=== PATIENT | male | born 1930 | race Caucasian/White ===

== ENCOUNTER 2017-02-13 09:34 | Emergency (ER) | payer MEDICARE ==
[~2017-02-13] VITALS: Ht 160 cm; Wt 75.0 kg
[~2017-02-13 09:34] MED LIST: ALPR.25 PO; ATOR80TA41 PO; BUPR-197 PO; COUM1TAB PO; COUM6TAB PO; ECASA PO; FINA1TAB2 PO; FURO20 PO; LANO0.2510 PO; MECL25 PO; NAME10TA PO; OMEP20CA5 PO; TAMS0.4C4 PO; VITA100018 PO; VITA100T55 PO
[2017-02-13 09:36] VITALS: BP 123/74; PULSE 85; RESP 16; TEMP 98.4; O2SAT 94
[2017-02-13 09:58] VITALS: BP 115/71; PULSE 90; RESP 21; TEMP 98.6; O2SAT 95
[2017-02-13 10:03] VITALS: BP 115/71; PULSE 90; RESP 21; TEMP 98.6; O2SAT 95
[2017-02-13] MEDS ORDERED: ALPR.25 PO (10:03)
[2017-02-13] MEDS ORDERED: BUPR150T3 PO (10:03)
[2017-02-13] MEDS ORDERED: VITA100018 PO (10:03)
[2017-02-13] MEDS ORDERED: ATOR10TA15 PO (10:03)
[2017-02-13] MEDS ORDERED: FURO1TAB62 PO (10:03)
[2017-02-13] MEDS ORDERED: OMEP20TA93 PO (10:03)
[2017-02-13] MEDS ORDERED: NAME10TA PO (10:03)
[2017-02-13] MEDS ORDERED: WARF-60 PO (10:03)
[2017-02-13] MEDS ORDERED: WARF-23 PO (10:03)
[2017-02-13] MEDS ORDERED: ALLO300T2 PO (10:03)
[2017-02-13] MEDS ORDERED: VITA500T4 PO (10:03)
[2017-02-13] MEDS ORDERED: DIGO0.12 PO (10:03)
[2017-02-13] MEDS ORDERED: SODIUM CHLORIDE 0.9% FLUSH 10 ML FLUSH IVF PRN ×2 (10:15)
[2017-02-13 10:25] VITALS: BP 115/71; PULSE 90; RESP 21; TEMP 98.6; O2SAT 95
--- NOTE | 2017-02-13 10:43 | PD ---
HPI Chief Complaint: General Weakness Time Seen by Provider: 09:59 Travel History International Travel<30 days: No Contact w/Intl Traveler<30days: No Traveled to known affect area: No History of Present Illness HPI 86 y/o male presents with his family with concern of increased generalized weakness that is worse in his legs and his arms leading to frequent falls. He went to [facility] urgent care a couple days ago and had an x-ray of his arm that showed a possible fracture and that is why he has the brace on. She states that he is on Coumadin given his history of strokes and they're not sure if he hit his head at all. They state that he has significant dementia and answer all the questions for him. He specifically denies any pain. History is limited. Family states that he can normally ambulate with his walker but since yesterday has not been able to move without significant assistance PFSH Past Medical History Hx Anticoagulant Therapy: Yes Arthritis: Yes Asthma: No Autoimmune Disease: No Blood Disorders: No Anxiety: No Depression: Yes Heart Rhythm Problems: Yes (ATRIAL FIBRILLATION) Cancer: No Cardiac Catheterization: Yes Cardiovascular Problems: Yes High Cholesterol: Yes Chemotherapy: No Chest Pain: Yes Congestive Heart Failure: No COPD: No Cerebrovascular Accident: Yes Diabetes: No Diminished Hearing: No Endocrine: No Gastrointestinal Disorders: Yes (HEARTBURN) GERD: Yes Glaucoma: No Gout: Yes Genitourinary: No Headaches: No Hepatitis: No Hiatal Hernia: No Hypertension: No Kidney Stones: No Musculoskeletal: Yes Neurologic: No Psychiatric: No Reproductive: No Respiratory: No Myocardial Infarction: No Radiation Therapy: No Renal Failure: No Seizures: No Sickle Cell Disease: No Sleep Apnea: No Thyroid Disease: No Ulcer: No Tetanus Vaccination: Unknown Influenza Vaccination: Yes Past Surgical History Abdominal Surgery: No AICD: No Cardiac Surgery: No Cholecystectomy: Yes Ear Surgery: No Endocrine Surgery: No Eye Surgery: No Genitourinary Surgery: No Gynecologic Surgery: No Oral Surgery: No Pacemaker: No Thoracic Surgery: No Other Surgery: Yes Social History Alcohol Use: No Tobacco Use: No Substance Use: No Allergies-Medications (Allergen,Severity, Reaction): Coded Allergies: No Known Allergies (Verified Adverse Reaction, Unknown, 02/13/17) Reported Meds & Prescriptions Reported Meds & Active Scripts Active Reported Xanax (Alprazolam) 0.25 Mg Tab 0.25 Mg PO Q6H PRN Vitamin D3 (Cholecalciferol) 1,000 Unit Tab 1,000 Units PO DAILY Warfarin 6 Mg Tab 6 Mg PO EVERY OTHER DAY Warfarin 5 Mg Tab 5 Mg PO EVERY OTHER DAY Vitamin B-12 (Cyanocobalamin) 500 Mcg Tab 500 Mcg PO DAILY Allopurinol 300 Mg Tab 300 Mg PO DAILY Atorvastatin (Atorvastatin Calcium) 10 Mg Tab 10 Mg PO HS Digoxin 0.125 Mg Tab 0.5 Tab PO DAILY Omeprazole 20 Mg Tab 20 Mg PO DAILY Bupropion HCl ER 24 HR (Bupropion HCl) 150 Mg Tab 150 Mg PO DAILY Namenda (Memantine) 10 Mg Tab 10 Mg PO DAILY Lasix (Furosemide) 20 Mg Tab 20 Mg PO DAILY Review of Systems Except as stated in HPI: all other systems reviewed are Neg Physical Exam Narrative GENERAL: Well-nourished, well-developed patient. SKIN: Warm and dry. HEAD: Normocephalic and atraumatic. EYES: No injection or drainage. pupils are equal ENT: No nasal drainage noted. NECK: Supple, trachea midline. CARDIOVASCULAR: Regular rate and rhythm RESPIRATORY: Breath sounds equal bilaterally at apices. No accessory muscle use. GASTROINTESTINAL: Abdomen soft, non-tender, nondistended. EXTREMITIES: No edema. BACK: Nontender to entire spine, to mid lumbar area there is step off, ?duration NEUROLOGICAL: Awake. Generalized weakness throughout noted, clear speech Data Data Last Documented VS Vital Signs Date Time Temp Pulse Resp B/P (MAP) Pulse Ox O2 Delivery O2 Flow Rate FiO2 02/13/17 13:38 85 143/70 (94) 96 02/13/17 13:07 19 Room Air 02/13/17 10:25 98.6 Orders Orders Complete Blood Count With Diff (02/13/17 10:09) Prothrombin Time / Inr (Pt) (02/13/17 10:09) Act Partial Throm Time (Ptt) (02/13/17 10:09) Type And Screen (02/13/17 10:09) Chest, Single Ap (02/13/17 10:09) Pelvis, Ap Only (Routine) (02/13/17 10:09) Ct Brain W/O Iv Contrast(Rout) (02/13/17 10:09) Ct Cerv Spine W/O Contrast (02/13/17 10:09) Ct Thor Spine W/O Contrast (02/13/17 10:09) Ct Lumb Spine W/O Contrast (02/13/17 10:09) Apply Cervical Collar (02/13/17 10:09) Iv Access Insert/Monitor (02/13/17 10:09) Ecg Monitoring (02/13/17 10:09) Oximetry (02/13/17 10:09) Sodium Chloride 0.9% Flush (Ns Flush) (02/13/17 10:15) Electrocardiogram (02/13/17 10:09) Comprehensive Metabolic Panel (02/13/17 10:09) Magnesium (Mg) (02/13/17 10:09) Ckmb (Isoenzyme) Profile (02/13/17 10:09) Troponin I (02/13/17 10:09) Urinalysis - C+S If Indicated (02/13/17 10:09) Sodium Chloride 0.9% Flush (Ns Flush) (02/13/17 10:15) Sodium Chlorid 0.9% 500 Ml Inj (Ns 500 M (02/13/17 11:45) Cath For Specimen (02/13/17 11:57) Ed Discharge Order (02/13/17 13:06) Labs Laboratory Tests Test 02/13/17 10:12 02/13/17 12:15 White Blood Count 13.3 TH/MM3 Red Blood Count 4.97 MIL/MM3 Hemoglobin 13.4 GM/DL Hematocrit 41.1 % Mean Corpuscular Volume 82.7 FL Mean Corpuscular Hemoglobin 26.9 PG Mean Corpuscular Hemoglobin Concent 32.5 % Red Cell Distribution Width 16.1 % Platelet Count 136 TH/MM3 Mean Platelet Volume 8.8 FL Neutrophils (%) (Auto) 66.7 % Lymphocytes (%) (Auto) 16.4 % Monocytes (%) (Auto) 15.8 % Eosinophils (%) (Auto) 0.7 % Basophils (%) (Auto) 0.4 % Neutrophils # (Auto) 8.9 TH/MM3 Lymphocytes # (Auto) 2.2 TH/MM3 Monocytes # (Auto) 2.1 TH/MM3 Eosinophils # (Auto) 0.1 TH/MM3 Basophils # (Auto) 0.1 TH/MM3 CBC Comment DIFF FINAL Differential Comment Prothrombin Time 17.5 SEC Prothromb Time International Ratio 1.6 RATIO Activated Partial Thromboplast Time 35.9 SEC Blood Urea Nitrogen 28 MG/DL Creatinine 1.48 MG/DL Random Glucose 89 MG/DL Total Protein 6.9 GM/DL Albumin 3.3 GM/DL Calcium Level 8.8 MG/DL Magnesium Level 1.6 MG/DL Alkaline Phosphatase 86 U/L Aspartate Amino Transf (AST/SGOT) 14 U/L Alanine Aminotransferase (ALT/SGPT) 17 U/L Total Bilirubin 0.5 MG/DL Sodium Level 140 MEQ/L Potassium Level 4.0 MEQ/L Chloride Level 109 MEQ/L Carbon Dioxide Level 23.7 MEQ/L Anion Gap 7 MEQ/L Estimat Glomerular Filtration Rate 45 ML/MIN Total Creatine Kinase 62 U/L Troponin I LESS THAN 0.02 NG/ML Urine Color YELLOW Urine Turbidity CLEAR Urine pH 5.5 Urine Specific Cisco 1.013 Urine Protein NEG mg/dL Urine Glucose (UA) NEG mg/dL Urine Ketones NEG mg/dL Urine Occult Blood NEG Urine Nitrite NEG Urine Bilirubin NEG Urine Urobilinogen LESS THAN 2.0 MG/DL Urine Leukocyte Esterase NEG Urine RBC 1 /hpf Urine WBC LESS THAN 1 /hpf Urine Hyaline Casts 1 /lpf Microscopic Urinalysis Comment CULT NOT INDICATED MDM Medical Decision Making Medical Screen Exam Complete: Yes Emergency Medical Condition: Yes Medical Record Reviewed: Yes (past history confirmed) Interpretation(s) CBC & BMP Diagram 02/13/17 10:12 Total Protein 6.9, Albumin 3.3 L, Calcium Level 8.8, Magnesium Level 1.6, Alkaline Phosphatase 86, Aspartate Amino Transf (AST/SGOT) 14 L, Alanine Aminotransferase (ALT/SGPT) 17, Total Bilirubin 0.5 Last 24 hours Impressions Thor[address] Spine CT 02/13/17 1009 Signed Impressions: Service Date/Time: January 10:41 - CONCLUSION: No acute findings and no evidence of fracture. Multilevel discogenic degenerative changes in the mid and lower thoracic spine and old mild compression deformity of T11. Smith Hilario MD Pelvis X-Ray 02/13/17 1009 Signed Impressions: Service Date/Time: January 10:27 - CONCLUSION: Negative exam. Smith Hilario MD Lumbar Spine CT 02/13/17 1009 Signed Impressions: Service Date/Time: January 10:44 - CONCLUSION: 1. No evidence of acute fracture. 2. Advanced discogenic degenerative changes with prominent osteophytes, neuroforaminal narrowing, vacuum disc phenomenon and listhesis. 3. Large left lateral disc protrusion L2-3. Smith Hilario MD Head CT 02/13/17 1009 Signed Impressions: Service Date/Time: January 10:33 - CONCLUSION: 1. Moderate severity ischemic atrophy, stable. 2. No acute findings in the brain. Smith Hilario MD Chest X-Ray 02/13/17 1009 Signed Impressions: Service Date/Time: January 10:29 - CONCLUSION: The lungs are clear. Smith Hilario MD Cervical Spine CT 02/13/17 1009 Signed Impressions: Service Date/Time: January 10:35 - CONCLUSION: 1. No evidence of fracture or spondylolisthesis. 2. Moderately advanced discogenic degenerative changes mid and lower cervical spine. Smith Hilario MD Differential Diagnosis Fracture, anemia, bleed, UTI, renal failure, stroke... Narrative Course Will check blood work, urinalysis, imaging and reevaluate ED workup shows mild increase in creatinine from baseline and leukocytosis, patient has no UTI, CT imaging without fracture or bleed, there is a disc bulge to lumbar area on the left. Lengthy discussion with family including who is power of senior trial attorney and offered observation for further testing including possible MRI of the brain and spine given symptoms. Family states that they prefer to take patient home with close outpatient follow-up and they feel comfortable managing him at home and given his age and symptoms this seems ok for now. Given return instructions Diagnosis Primary Impression: General weakness Additional Impression: Renal insufficiency Patient Instructions: General Instructions Additional Instructions: return as needed, follow with primary tommorrow Med/Other Pt SpecificInfo: No Change to Meds Disposition: 01 DISCHARGE HOME Condition: Stable Zoraida Cartre MD Feb 13, 2017 10:43
[2017-02-13 10:50] LABS: AUTOMATED NEUTROPHIL # 8.9 TH/MM3 (1.8-7.7); BASOPHIL # 0.1 TH/MM3 (0-0.2); BASOPHIL % 0.4 % (0.0-2.0); EOSINOPHIL # 0.1 TH/MM3 (0-0.4); EOSINOPHIL % 0.7 % (0.0-4.0); HEMATOCRIT 41.1 % (39.0-51.0); HEMO FLAGS DIFF FINAL; LYMPH % 16.4 % (9.0-44.0); LYMPHOCYTE # 2.2 TH/MM3 (1.0-4.8); MEAN CELL VOLUME 82.7 FL (80.0-100.0); MEAN CORPUSCULAR HEMOGLOBIN 26.9 PG (27.0-34.0); MEAN CORPUSCULAR HGB CONC 32.5 % (32.0-36.0); MONO % 15.8 % (0.0-8.0); NEUT % 66.7 % (16.0-70.0); PLATELET COUNT 136 TH/MM3 (150-450); RED BLOOD COUNT 4.97 MIL/MM3 (4.50-5.90); RED CELL DISTRIBUTION WIDTH 16.1 % (11.6-17.2); WHITE BLOOD COUNT 13.3 TH/MM3 (4.0-11.0)
--- NOTE | 2017-02-13 10:54 | RADRPT ---
EXAM DATE/TIME: 02/13/2017 10:29 [facility] COMPARISON: No previous studies available for comparison. INDICATIONS : General weakness; fall this morning. MEDICAL HISTORY : Stroke. Afib. SURGICAL HISTORY : Cardiac cath. ENCOUNTER: Initial ACUITY: 1 day PAIN SCORE: 0/10 LOCATION: Bilateral chest FINDINGS: A single view of the chest demonstrates the lungs to be symmetrically aerated without evidence of mas s, infiltrate or effusion. No evidence of pneumothorax. The cardiomediastinal contours are unremarka ble. Osseous structures are intact. CONCLUSION: The lungs are clear. Smith Hilario MD on February 13, 2017 at 10:52 Board Certified Radiologist. This report was verified electronically.
--- NOTE | 2017-02-13 10:54 | RADRPT ---
EXAM DATE/TIME: 02/13/2017 10:27 [facility] COMPARISON: No previous studies available for comparison. INDICATIONS : Pelvic pain; fall this morning. MEDICAL HISTORY : None. SURGICAL HISTORY : None. ENCOUNTER: Initial ACUITY: 1 day PAIN SCORE: 5/10 LOCATION: Bilateral pelvis FINDINGS: A single frontal view of the pelvis demonstrates no evidence of fracture. The bony pelvic ring is in tact. Bony mineralization is normal. The soft tissues are intact. CONCLUSION: Negative exam. Smith Hilario MD on February 13, 2017 at 10:52 Board Certified Radiologist. This report was verified electronically.
--- NOTE | 2017-02-13 10:56 | RADRPT ---
EXAM DATE/TIME: 02/13/2017 10:33 [facility] COMPARISON: CT BRAIN W/O CONTRAST, November 27, 2014, 9:54. INDICATIONS : Generalized weakness with frequent falls RADIATION DOSE: 56.35 CTDIvol (mGy) MEDICAL HISTORY : Cardiovascular disease. Cerebrovascular disease. SURGICAL HISTORY : Cholecystectomy. Back surgery ENCOUNTER: Initial ACUITY: 1 day PAIN SCALE: 0/10 LOCATION: cranial TECHNIQUE: Multiple contiguous axial images were obtained of the head. Using automated exposure control and adj ustment of the mA and/or kV according to patient size, radiation dose was kept as low as reasonably a chievable to obtain optimal diagnostic quality images. DICOM format image data is available electro nically for review and comparison. FINDINGS: CEREBRUM: The ventricles, sulci, and basal cisterns are prominent and there is decreased attenuation diffusely throughout the supratentorial white matter characteristic of diffuse ischemic change. The severity o f the ischemic findings is stable compared to prior CT in 2014. No evidence of midline shift, mass l esion, hemorrhage or acute infarction. No extra-axial fluid collections are seen. POSTERIOR FOSSA: The cerebellum and brainstem are intact. The 4th ventricle is midline. The cerebellopontine angle i s unremarkable. EXTRACRANIAL: The visualized portion of the orbits is intact. SKULL: The calvaria is intact. No evidence of skull fracture. CONCLUSION: 1. Moderate severity ischemic atrophy, stable. 2. No acute findings in the brain. Smith Hilario MD on February 13, 2017 at 10:53 Board Certified Radiologist. This report was verified electronically.
[2017-02-13 10:57] LABS: APTT (PATIENT) 35.9 SEC (24.3-30.1); INTERNATIONAL NORMALIZED RATIO 1.6 RATIO; PROTHROMBIN TIME - PATIENT 17.5 SEC (9.8-11.6)
[2017-02-13 11:11] LABS: BLOOD UREA NITROGEN 28 MG/DL (7-18); GLOMERULAR FILTRATION RATE 45 ML/MIN (>89)
[2017-02-13 11:12] LABS: ANION GAP 7 MEQ/L (5-15); AST (GOT) 14 U/L (15-37); BICARBONATE 23.7 MEQ/L (21.0-32.0); CHLORIDE 109 MEQ/L (98-107); MAGNESIUM 1.6 MG/DL (1.5-2.5); SODIUM (NA) 140 MEQ/L (136-145)
[2017-02-13 11:16] LABS: ALKALINE PHOSPHATASE 86 U/L (45-117); ALT (GPT) 17 U/L (12-78); TOTAL BILIRUBIN ADULT 0.5 MG/DL (0.2-1.0)
[2017-02-13 11:19] LABS: CREATINE KINASE 62 U/L (39-308)
--- NOTE | 2017-02-13 11:23 | RADRPT ---
EXAM DATE/TIME: 02/13/2017 10:35 [facility] COMPARISON: No previous studies available for comparison. INDICATIONS : Generalized weakness with frequent falls RADIATION DOSE: 41.41 CTDIvol (mGy) MEDICAL HISTORY : Cerebrovascular disease. Cardiovascular disease SURGICAL HISTORY : Cholecystectomy. back surgery ENCOUNTER: Initial ACUITY: 1 day PAIN SCALE: 0/10 LOCATION: neck TECHNIQUE: Volumetric scanning of the cervical spine was performed. Multiplanar reconstructions in the sagittal, coronal and oblique axial planes were performed. Using automated exposure control and adjustment o f the mA and/or kV according to patient size, radiation dose was kept as low as reasonably achievable to obtain optimal diagnostic quality images. DICOM format image data is available electronically f or review and comparison. FINDINGS: There is normal alignment of the vertebral bodies of the cervical spine preservation of vertebral bod y height. Advanced discogenic degenerative changes are present C3-C7 with marked narrowing of the C5 -6 and C6-7 interspace and multilevel osteophyte formation. The posterior elements remain in normal alignment without evidence of locked or perched facets. The atlantoaxial articulation is in normal a lignment. Prevertebral soft tissues are normal in thickness. C2-C3: No fracture seen. The neural foramina patent. C3-C4: No fracture seen. Moderate left sided bony neural foraminal stenosis. C4-C5: No fracture seen. The neural foramina patent. C5-C6: No fracture seen. Moderate right-sided bony neural foraminal stenosis. C6-C7: No fracture seen. Mild bilateral bony neural foraminal stenosis. C7-T1: No fracture seen. The neural foramina patent. CONCLUSION: 1. No evidence of fracture or spondylolisthesis. 2. Moderately advanced discogenic degenerative changes mid and lower cervical spine. Smith Hilario MD on February 13, 2017 at 11:14 Board Certified Radiologist. This report was verified electronically.
--- NOTE | 2017-02-13 11:27 | RADRPT ---
EXAM DATE/TIME: 02/13/2017 10:44 [facility] COMPARISON: No previous studies available for comparison. INDICATIONS : Generalized weakness with frequent falls RADIATION DOSE: 20.20 CTDIvol (mGy) ; Combined studies - Thoracic Spine/Lumbar Spine MEDICAL HISTORY : Cardiovascular disease. Cerebrovascular disease. SURGICAL HISTORY : Cholecystectomy. back surgery ENCOUNTER: Initial ACUITY: 1 day PAIN SCALE: 0/10 LOCATION: low back TECHNIQUE: Volumetric scanning of the lumbar spine was performed. Multiplanar reconstructions in the sagittal, coronal and oblique axial planes were performed. Using automated exposure control and adjustment of the mA and/or kV according to patient size, radiation dose was kept as low as reasonably achievable t o obtain optimal diagnostic quality images. DICOM format image data is available electronically for review and comparison. FINDINGS: Diffuse osteopenia. There is 10% loss of height of the T12 vertebral body. Multilevel advanced disc ogenic degenerative changes are present in the lower thoracic and lumbar spine with a mild retrolisth esis of L2 with respect to L3, marked narrowing of the L3-4 interspace with prominent anterior and po sterior osteophytes, marked narrowing of the L5-S1 interspace posteriorly with prominent posterior os teophytes, vacuum phenomenon in the L1-2, L3-4, L4-5, and L5 discs, and anterior nonbridging paravert ebral ossification at T10-L5. On the axial images, no fracture is seen. Prominent left-sided protru andrew of the disc at the L2-3 level in the lateral and far lateral position. Severe bilateral bony ne ural foraminal stenosis at L3-4 and broad-based bulging of the disc at L4-5. Vascular calcifications of the aorta and iliac vessels. CONCLUSION: 1. No evidence of acute fracture. 2. Advanced discogenic degenerative changes with prominent osteophytes, neuroforaminal narrowing, vac uum disc phenomenon and listhesis. 3. Large left lateral disc protrusion L2-3. Smith Hilario MD on February 13, 2017 at 11:22 Board Certified Radiologist. This report was verified electronically.
[2017-02-13] MEDS ORDERED: SODIUM CHLORID 0.9% 500 ML INJ 500 ML IV ONE (11:45)
--- NOTE | 2017-02-13 12:08 | RADRPT ---
EXAM DATE/TIME: 02/13/2017 10:41 [facility] COMPARISON: No previous studies available for comparison. INDICATIONS : Generalized weakness, frequent falls, RADIATION DOSE: 20.20 CTDIvol (mGy) ; Combined studies - Thoracic Spine/Lumbar Spine MEDICAL HISTORY : Cerebrovascular disease. Cardiovascular disease SURGICAL HISTORY : Cholecystectomy. back surgery ENCOUNTER: Initial ACUITY: 1 day PAIN SCALE: 0/10 LOCATION: upper back TECHNIQUE: Volumetric scanning of the thoracic spine was performed. Multiplanar reconstructions in the sagittal , coronal and oblique axial planes were performed. Using automated exposure control and adjustment o f the mA and/or kV according to patient size, radiation dose was kept as low as reasonably achievable to obtain optimal diagnostic quality images. DICOM format image data is available electronically f or review and comparison. FINDINGS: There is normal alignment of vertebral bodies of the thoracic spine. There is a 10% compression defo rmity anterior T11 vertebral body which is old and there is intact bridging anterior paravertebral os sification at T10-11. There are also prominent areas of anterior bridging paravertebral ossification extending from T6-L1. The posterior elements are in normal alignment. No fractures seen. The cost overtebral junctions are intact. Vacuum phenomenon is present in the T5-6, T6-7, and T8-9 discs. CONCLUSION: No acute findings and no evidence of fracture. Multilevel discogenic degenerative changes in the mid and lower thoracic spine and old mild compression deformity of T11. Smith Hilario MD on February 13, 2017 at 12:04 Board Certified Radiologist. This report was verified electronically.
[2017-02-13 12:31] LABS: BLOOD, URINE NEG (NEG); GLUCOSE,URINE NEG (NEG); HYALINE CAST, URINE 1 /lpf (RARE); KETONE, URINE NEG (NEG); NITRITE,URINE NEG (NEG); PH, URINE 5.5 (5.0-8.5); URINE COLOR YELLOW (YELLW/STRAW)
[2017-02-13 12:44] LABS: COMMENT (UR) CULT NOT INDICATED; CULTURE IF INDICATED CULT NOT INDICATED
[2017-02-13 13:07] VITALS: BP 143/70; PULSE 85; RESP 19; O2SAT 96
[2017-02-13 13:38] VITALS: BP 143/70
--- NOTE | 2017-02-13 14:55 | EKG ---
Date Performed: 02/13/2017 Time Performed: 11:24:27 PTAGE: 86 years EKG: Sinus rhythm WITH OCCASIONAL SUPRAVENTRICULAR PREMATURE COMPLEXES INFERIOR MYOCARDIAL INFARCTION ABNORMAL ECG PREVIOUS TRACING : 11/27/2014 08.56 DOCTOR: Tay Kelly Interpretating Date/Time 02/13/2017 14:53:54
== END 2017-02-13 13:39 | disposition home or self-care (01) ==
LOC: NEPC 09:34
DX: R53.1 Weakness (principal); N28.9 Disorder of kidney and ureter, unspecified; D72.829 Elevated white blood cell count, unspecified; M50.33 Other cervical disc degeneration, cervicothoracic region; I48.91 Unspecified atrial fibrillation; M19.90 Unspecified osteoarthritis, unspecified site; M10.9 Gout, unspecified; E78.00 Pure hypercholesterolemia, unspecified; Z86.73 Personal history of transient ischemic attack (TIA), and cerebral infarction without residual deficits
CPT/HCPCS: 70450; 71010; 72125; 72128; 72131; 72170; 80053; 81001; 82550; 83735; 84484; 85025; 85610; 85730; 86850; 86900; 86901; 93005; 96360; 99285; J7040; L0150

== ENCOUNTER 2017-07-21 11:01 | Inpatient (IN) | payer MEDICARE ==
[2017-07-21] VITALS (9 sets, daily range): BP systolic 119–171; BP diastolic 59–95; PULSE 54–99; RESP 18–21; TEMP 97.5–98; O2SAT 18–99
[~2017-07-21 11:01] MED LIST changes: +ALLO300T2 PO; +ATOR10TA15 PO; -ATOR80TA41 PO; -BUPR-197 PO; +BUPR150T3 PO; -COUM1TAB PO; -COUM6TAB PO; +DIGO0.12 PO; -ECASA PO; -FINA1TAB2 PO; +FURO1TAB62 PO; -FURO20 PO; -LANO0.2510 PO; -MECL25 PO; -OMEP20CA5 PO; +OMEP20TA93 PO; -TAMS0.4C4 PO; -VITA100T55 PO; +VITA500T4 PO; +WARF-23 PO; +WARF-60 PO
[2017-07-21] MEDS ORDERED: APIX5TAB PO (11:30)
[2017-07-21] MEDS ORDERED: SODIUM CHLORIDE 0.9% FLUSH 10 ML FLUSH IVF PRN (11:30)
--- NOTE | 2017-07-21 11:33 | PD ---
HPI Chief Complaint: Neuro Symptoms/ Deficits Time Seen by Provider: 11:22 Travel History International Travel<30 days: No Contact w/Intl Traveler<30days: No Traveled to known affect area: No History of Present Illness HPI Patient comes emergency department reportedly from home for having strokelike symptoms that began 5 days ago. Patient was at adult daycare when he began having difficulty ambulating and slurred speech. This was reportedly got better and then began having difficulty speaking again on Friday. Per EMS family noticed right-sided facial droop this morning but was unclear whether this was onset today or not. Patient is nonverbal thus limiting H&P, but patient is able to answer yes or no questions by shaking his head. Patient denies any headache, chest pain, shortness of breath, abdominal pain, nausea, or any weakness anywhere. Denies anything making symptoms better or worse. PFSH Past Medical History Hx Anticoagulant Therapy: Yes Arthritis: Yes Asthma: No Autoimmune Disease: No Blood Disorders: No Anxiety: No Depression: Yes Heart Rhythm Problems: Yes (ATRIAL FIBRILLATION) Cancer: No Cardiac Catheterization: Yes Cardiovascular Problems: Yes High Cholesterol: Yes Chemotherapy: No Chest Pain: Yes Congestive Heart Failure: No COPD: No Cerebrovascular Accident: Yes Diabetes: No Diminished Hearing: No Endocrine: No Gastrointestinal Disorders: Yes (HEARTBURN) GERD: Yes Glaucoma: No Gout: Yes Genitourinary: No Headaches: No Hepatitis: No Hiatal Hernia: No Hypertension: No Kidney Stones: No Musculoskeletal: Yes Neurologic: No Psychiatric: No Reproductive: No Respiratory: No Myocardial Infarction: No Radiation Therapy: No Renal Failure: No Seizures: No Sickle Cell Disease: No Sleep Apnea: No Thyroid Disease: No Ulcer: No ?: Not Past Surgical History Abdominal Surgery: No AICD: No Cardiac Surgery: No Cholecystectomy: Yes Ear Surgery: No Endocrine Surgery: No Eye Surgery: No Genitourinary Surgery: No Gynecologic Surgery: No Oral Surgery: No Pacemaker: No Thoracic Surgery: No Other Surgery: Yes Social History Alcohol Use: No Tobacco Use: No Substance Use: No Allergies-Medications (Allergen,Severity, Reaction): Coded Allergies: No Known Allergies (Verified Adverse Reaction, Unknown, 02/13/17) Reported Meds & Prescriptions Reported Meds & Active Scripts Active Reported Eliquis (Apixaban) 5 Mg Tab 5 Mg PO BID Xanax (Alprazolam) 0.25 Mg Tab 0.25 Mg PO Q6H PRN Vitamin D3 (Cholecalciferol) 1,000 Unit Tab 1,000 Units PO DAILY Vitamin B-12 (Cyanocobalamin) 500 Mcg Tab 500 Mcg PO DAILY Atorvastatin (Atorvastatin Calcium) 10 Mg Tab 10 Mg PO HS Digoxin 0.125 Mg Tab 0.5 Tab PO DAILY Omeprazole 20 Mg Tab 20 Mg PO DAILY Bupropion HCl ER 24 HR (Bupropion HCl) 150 Mg Tab 150 Mg PO DAILY Namenda (Memantine) 10 Mg Tab 10 Mg PO DAILY Lasix (Furosemide) 20 Mg Tab 20 Mg PO DAILY Review of Systems ROS Limitations: Clinical Condition Except as stated in HPI: all other systems reviewed are Neg Physical Exam Exam Limitations: Clinical Condition Narrative GENERAL: Well-developed, well nourished, in no acute distress, and non-ill appearing. SKIN: Focused skin assessment warm and dry. HEAD: Atraumatic. Normocephalic. EYES: Pupils equal and round. EOMI. No scleral icterus. No injection or drainage. ENT: No nasal bleeding or discharge. Mucous membranes pink and moist. NECK: Trachea midline. Supple. No nuclear rigidity. CARDIOVASCULAR: Irregularly rate and rhythm. Murmur appreciated. RESPIRATORY: No accessory muscle use. No respiratory distress. Clear to auscultation. Breath sounds equal bilaterally. GASTROINTESTINAL: Abdomen soft, non-tender, nondistended, and no guarding. Hepatic and splenic margins not palpable. Normal bowel sounds x4. No pulsatile mass. MUSCULOSKELETAL: No obvious deformities. No clubbing. No cyanosis. No edema. Full range of motion. NEUROLOGICAL: Awake and alert. No obvious cranial nerve deficits. Motor grossly within normal limits. Nonverbal. Right-sided facial droop. Deviation of the tongue noted. Equal rise and fall of eyebrows bilaterally. Patient is able to keep eyes closed to resistance. No pronator drift noted. Bilateral bundle shaker strength is equal. Strength is equal bilaterally with plantar dorsiflexion. PSYCHIATRIC: Appropriate mood and affect; insight and judgment normal. Data Data Last Documented VS Vital Signs Date Time Temp Pulse Resp B/P (MAP) Pulse Ox O2 Delivery O2 Flow Rate FiO2 07/21/17 12:48 79 18 136/70 (92) 98 Room Air Orders Orders Electrocardiogram (07/21/17 11:22) Prothrombin Time / Inr (Pt) (07/21/17 11:22) Act Partial Throm Time (Ptt) (07/21/17 11:22) Complete Blood Count With Diff (07/21/17 11:22) Comprehensive Metabolic Panel (07/21/17 11:22) Creatine Kinase (Cpk) (07/21/17 11:22) Troponin I (07/21/17 11:22) Urinalysis - C+S If Indicated (07/21/17 11:22) Ct Brain W/O Iv Contrast(Rout) (07/21/17 11:22) Ecg Monitoring (07/21/17 11:22) Iv Access Insert/Monitor (07/21/17 11:22) Oximetry (07/21/17 11:22) Sodium Chloride 0.9% Flush (Ns Flush) (07/21/17 11:30) Metoprolol Tartrate Inj (Lopressor Inj) (07/21/17 11:45) Chest, Single Ap (07/21/17 11:55) Admit Order (Ed Use Only) (07/21/17 13:08) Labs Laboratory Tests Test 07/21/17 11:30 White Blood Count 13.4 TH/MM3 Red Blood Count 4.96 MIL/MM3 Hemoglobin 13.1 GM/DL Hematocrit 40.4 % Mean Corpuscular Volume 81.5 FL Mean Corpuscular Hemoglobin 26.5 PG Mean Corpuscular Hemoglobin Concent 32.5 % Red Cell Distribution Width 16.1 % Platelet Count 84 TH/MM3 Mean Platelet Volume 9.9 FL Neutrophils (%) (Auto) 69.2 % Lymphocytes (%) (Auto) 12.7 % Monocytes (%) (Auto) 17.7 % Eosinophils (%) (Auto) 0.1 % Basophils (%) (Auto) 0.3 % Neutrophils # (Auto) 9.3 TH/MM3 Lymphocytes # (Auto) 1.7 TH/MM3 Monocytes # (Auto) 2.4 TH/MM3 Eosinophils # (Auto) 0.0 TH/MM3 Basophils # (Auto) 0.0 TH/MM3 CBC Comment AUTO DIFF Differential Total Cells Counted 100 Neutrophils % (Manual) 76 % Band Neutrophils % 3 % Lymphocytes % 7 % Monocytes % 14 % Neutrophils # (Manual) 10.6 TH/MM3 Differential Comment FINAL DIFF MANUAL Platelet Estimate LOW Platelet Morphology Comment NORMAL Ovalocytes 1+ Prothrombin Time 13.5 SEC Prothromb Time International Ratio 1.3 RATIO Activated Partial Thromboplast Time 34.0 SEC Blood Urea Nitrogen 28 MG/DL Creatinine 1.67 MG/DL Random Glucose 95 MG/DL Total Protein 7.1 GM/DL Albumin 3.8 GM/DL Calcium Level 9.1 MG/DL Alkaline Phosphatase 102 U/L Aspartate Amino Transf (AST/SGOT) 10 U/L Alanine Aminotransferase (ALT/SGPT) 17 U/L Total Bilirubin 0.7 MG/DL Sodium Level 143 MEQ/L Potassium Level 4.2 MEQ/L Chloride Level 110 MEQ/L Carbon Dioxide Level 25.4 MEQ/L Anion Gap 8 MEQ/L Estimat Glomerular Filtration Rate 39 ML/MIN Total Creatine Kinase 53 U/L Troponin I LESS THAN 0.02 NG/ML MDM Medical Decision Making Medical Screen Exam Complete: Yes Emergency Medical Condition: Yes Interpretation(s) EKG reviewed by Dr. Moses shows atrial fibrillation with ventricular rate of 107. No STEMI. Differential Diagnosis TIA, CVA, Callahan's palsy, metabolic disturbance, UTI, AMS Narrative Course Patient was seen and examined. Initial laboratory radiological studies were ordered. IV was established patient was placed on continuous cardiac monitoring. 1154 patient's family at bedside confirms reports from EMS. Patient's daughter reports that this morning patient tried taking his pills was able swallow some respiratory arrest out. Uncertain which pills patient was actually took which ones he spit out. Reports that she tried feeding him eggs however he would only chewing will not swallow. Discussed patient with Dr. Moses, who saw and evaluated patient and is in agreement with plan of care and disposition. Discussed all findings and plan of care with patient's family, who is agreeable to have patient admitted. Dr. Moses spoke with for healthcare hospitalist Dr. Cook is agreeable to admit the patient. Patient remained stable throughout ED course and facial droop noted to improve, however patient remained nonverbal. Diagnosis Primary Impression: CVA (cerebral vascular accident) Qualified Codes: I63.9 - Cerebral infarction, unspecified Additional Impressions: Facial droop CKD (chronic kidney disease) stage 3, GFR 30-59 ml/min Admitting Information Admitting Physician Requests: Admit Condition: Stable Leandro Young Jul 21, 2017 11:33
[2017-07-21] MEDS ORDERED: METOPROLOL TARTRATE 5 MG/5 ML VIAL IV PUSH ONE (11:45)
--- NOTE | 2017-07-21 12:07 | RADRPT ---
EXAM DATE/TIME: 07/21/2017 11:55 [facility] COMPARISON: CT BRAIN W/O CONTRAST, February 13, 2017, 10:33. INDICATIONS : Altered mental status. RADIATION DOSE: 56.35 CTDIvol (mGy) MEDICAL HISTORY : Cardiovascular disease. SURGICAL HISTORY : Non-responsive. ENCOUNTER: Initial ACUITY: 1 day PAIN SCALE: Non-responsive LOCATION: Bilateral head TECHNIQUE: Multiple contiguous axial images were obtained of the head. Using automated exposure control and adj ustment of the mA and/or kV according to patient size, radiation dose was kept as low as reasonably a chievable to obtain optimal diagnostic quality images. DICOM format image data is available electro nically for review and comparison. FINDINGS: CEREBRUM: The ventricles are normal for age with diffuse atrophic change. There is an old small lacunar infarct in the right basal ganglia. No evidence of midline shift, mass lesion, hemorrhage or acute infarctio n. No extra-axial fluid collections are seen. POSTERIOR FOSSA: The cerebellum and brainstem are intact. The 4th ventricle is midline. The cerebellopontine angle i s unremarkable. EXTRACRANIAL: The visualized portion of the orbits is intact. SKULL: The calvaria is intact. No evidence of skull fracture. CONCLUSION: 1. Moderate to severe atrophic changes old infarcts. 2. No acute hemorrhage, mass or evidence of acute infarction. Eliazar Pimentel MD on July 21, 2017 at 12:03 Board Certified Radiologist. This report was verified electronically.
--- NOTE | 2017-07-21 12:13 | PD ---
Physical Exam Date Seen by Provider: Jul 21, 2017 Time Seen by Provider: 12:00 Narrative I am seeing this patient with Juan José Young PA-C. This is an 86-year-old gentleman with a history of atrial fibrillation, previous TIAs, who presents here via EMS after his daughter noted a right-sided facial droop. She was also noted that he had difficulty swallowing. According to the paramedics and family , the symptoms have been going on for several days and have been waxing and waning. The patient is reportedly taking Eliquis twice daily for his A. fib. Data Data Last Documented VS Vital Signs Date Time Temp Pulse Resp B/P (MAP) Pulse Ox O2 Delivery O2 Flow Rate FiO2 07/21/17 12:48 79 18 136/70 (92) 98 Room Air Orders Orders Electrocardiogram (07/21/17 11:22) Prothrombin Time / Inr (Pt) (07/21/17 11:22) Act Partial Throm Time (Ptt) (07/21/17 11:22) Complete Blood Count With Diff (07/21/17 11:22) Comprehensive Metabolic Panel (07/21/17 11:22) Creatine Kinase (Cpk) (07/21/17 11:22) Troponin I (07/21/17 11:22) Urinalysis - C+S If Indicated (07/21/17 11:22) Ct Brain W/O Iv Contrast(Rout) (07/21/17 11:22) Ecg Monitoring (07/21/17 11:22) Iv Access Insert/Monitor (07/21/17 11:22) Oximetry (07/21/17 11:22) Sodium Chloride 0.9% Flush (Ns Flush) (07/21/17 11:30) Metoprolol Tartrate Inj (Lopressor Inj) (07/21/17 11:45) Chest, Single Ap (07/21/17 11:55) Labs Laboratory Tests Test 07/21/17 11:30 White Blood Count 13.4 TH/MM3 Red Blood Count 4.96 MIL/MM3 Hemoglobin 13.1 GM/DL Hematocrit 40.4 % Mean Corpuscular Volume 81.5 FL Mean Corpuscular Hemoglobin 26.5 PG Mean Corpuscular Hemoglobin Concent 32.5 % Red Cell Distribution Width 16.1 % Platelet Count 84 TH/MM3 Mean Platelet Volume 9.9 FL Neutrophils (%) (Auto) 69.2 % Lymphocytes (%) (Auto) 12.7 % Monocytes (%) (Auto) 17.7 % Eosinophils (%) (Auto) 0.1 % Basophils (%) (Auto) 0.3 % Neutrophils # (Auto) 9.3 TH/MM3 Lymphocytes # (Auto) 1.7 TH/MM3 Monocytes # (Auto) 2.4 TH/MM3 Eosinophils # (Auto) 0.0 TH/MM3 Basophils # (Auto) 0.0 TH/MM3 CBC Comment AUTO DIFF Prothrombin Time 13.5 SEC Prothromb Time International Ratio 1.3 RATIO Activated Partial Thromboplast Time 34.0 SEC Blood Urea Nitrogen 28 MG/DL Creatinine 1.67 MG/DL Random Glucose 95 MG/DL Total Protein 7.1 GM/DL Albumin 3.8 GM/DL Calcium Level 9.1 MG/DL Alkaline Phosphatase 102 U/L Aspartate Amino Transf (AST/SGOT) 10 U/L Alanine Aminotransferase (ALT/SGPT) 17 U/L Total Bilirubin 0.7 MG/DL Sodium Level 143 MEQ/L Potassium Level 4.2 MEQ/L Chloride Level 110 MEQ/L Carbon Dioxide Level 25.4 MEQ/L Anion Gap 8 MEQ/L Estimat Glomerular Filtration Rate 39 ML/MIN Total Creatine Kinase 53 U/L Troponin I LESS THAN 0.02 NG/ML MDM Medical Record Reviewed: Yes Supervised Visit with LYLE: Yes Differential Diagnosis CVA versus TIA versus intracranial hemorrhage Narrative Course 86-year-old male with a history of CVA, atrial fibrillation, who presents with 3 day history of intermittent ataxia and not speaking. Daughter noted a facial droop today and 911 was called. When patient arrived he is nonverbal he does have a slight right-sided facial droop. The rest of his neuro exam is unremarkable. CT brain shows no evidence of acute process. The patient is currently already on Eliquis. Given this, the patient will be admitted and have a neuro consult. The patient was discussed with Dr. Donavan Chinchilla, [facility]. Diagnosis Primary Impression: CVA (cerebral vascular accident) Additional Impressions: Expressive aphasia DM (diabetes mellitus) HTN (hypertension) Chronic kidney disease A-fib Admitting Information Admitting Physician Requests: Admit Esequiel Moses MD Jul 21, 2017 12:13
--- NOTE | 2017-07-21 12:19 | RADRPT ---
EXAM DATE/TIME: 07/21/2017 12:08 [facility] COMPARISON: CHEST SINGLE AP, February 13, 2017, 10:29. INDICATIONS : Syncope. MEDICAL HISTORY : Cardiovascular disease. Cerebrovascular disease. SURGICAL HISTORY : Cholecystectomy. Back surgery. ENCOUNTER: Initial ACUITY: 1 day PAIN SCORE: Non-responsive. LOCATION: Bilateral chest FINDINGS: A single view of the chest demonstrates the lungs to be symmetrically aerated without evidence of mas s, infiltrate or effusion. The cardiomediastinal contours are unremarkable. Osseous structures are intact. Changes again noted in the aorta. There is mild scarring. The study is Midinspiratory. CONCLUSION: No acute disease. Eliazar Pimentel MD on July 21, 2017 at 12:17 Board Certified Radiologist. This report was verified electronically.
[2017-07-21 12:22] LABS: AUTOMATED NEUTROPHIL # 9.3 TH/MM3 (1.8-7.7); BASOPHIL % 0.3 % (0.0-2.0); EOSINOPHIL % 0.1 % (0.0-4.0); HEMATOCRIT 40.4 % (39.0-51.0); HEMOGLOBIN 13.1 GM/DL (13.0-17.0); LYMPH % 12.7 % (9.0-44.0); LYMPHOCYTE # 1.7 TH/MM3 (1.0-4.8); MEAN CELL VOLUME 81.5 FL (80.0-100.0); MEAN CORPUSCULAR HEMOGLOBIN 26.5 PG (27.0-34.0); MEAN CORPUSCULAR HGB CONC 32.5 % (32.0-36.0); MEAN PLATELET VOLUME 9.9 FL (7.0-11.0); MONO % 17.7 % (0.0-8.0); MONOCYTE # 2.4 TH/MM3 (0-0.9); NEUT % 69.2 % (16.0-70.0); PLATELET COUNT 84 TH/MM3 (150-450); RED BLOOD COUNT 4.96 MIL/MM3 (4.50-5.90); RED CELL DISTRIBUTION WIDTH 16.1 % (11.6-17.2); WHITE BLOOD COUNT 13.4 TH/MM3 (4.0-11.0)
[2017-07-21 12:34] LABS: INTERNATIONAL NORMALIZED RATIO 1.3 RATIO; PROTHROMBIN TIME - PATIENT 13.5 SEC (9.8-11.6)
[2017-07-21 12:42] LABS: ALBUMIN 3.8 GM/DL (3.4-5.0); ALT (GPT) 17 U/L (12-78); AST (GOT) 10 U/L (15-37); BICARBONATE 25.4 MEQ/L (21.0-32.0); BLOOD UREA NITROGEN 28 MG/DL (7-18); CALCIUM 9.1 MG/DL (8.5-10.1); CHLORIDE 110 MEQ/L (98-107); CREATININE 1.67 MG/DL (0.60-1.30); GLOMERULAR FILTRATION RATE 39 ML/MIN (>89); GLUCOSE,RANDOM 95 MG/DL (74-106); SODIUM (NA) 143 MEQ/L (136-145)
[2017-07-21 12:46] LABS: ALKALINE PHOSPHATASE 102 U/L (45-117); TOTAL BILIRUBIN ADULT 0.7 MG/DL (0.2-1.0); TOTAL PROTEIN 7.1 GM/DL (6.4-8.2); TROPONIN I LESS THAN 0.02 NG/ML (0.02-0.05)
[2017-07-21 13:07] LABS: BANDS 3 % (0-6); LYMPHOCYTES 7 % (9-44); MONOCYTES 14 % (0-8); NEUTROPHIL # MANUAL DIFF 10.6 TH/MM3 (1.8-7.7); POLYS (SEG NEUTROPHILS) 76 % (16-70)
[2017-07-21 13:08] LABS: OVALOCYTES 1+ (NORMAL)
[2017-07-21] MEDS ORDERED: SODIUM CHLOR 0.9% 1000 ML INJ 1,000 ML IV SCH (13:16)
[2017-07-21] MEDS ORDERED: NALOXONE HCL 0.4 MG/ML AMP IV PUSH PRN (13:30)
[2017-07-21] MEDS ORDERED: SODIUM CHLORIDE 0.9% FLUSH 10 ML FLUSH IV FLUSH PRN (13:30)
[2017-07-21] MEDS ORDERED: ACETAMINOPHEN 325 MG TAB PO PRN (13:30)
[2017-07-21] MEDS ORDERED: MAGNESIUM HYDROXIDE SUSP 30 ML CUP PO PRN (13:30)
[2017-07-21] MEDS ORDERED: ONDANSETRON HCL 4 MG/2 ML VIAL IVP PRN (13:30)
[2017-07-21] MEDS ORDERED: ALPRAZolam 0.25 MG TAB PO PRN (13:45)
[2017-07-21] MEDS ORDERED: PILL SPLITTER OTHER PRN (14:00)
--- NOTE | 2017-07-21 14:01 | HHI.HP ---
HPI Service [facility] Hospitalists Primary Care Physician Jerod Osorio MD Admission Diagnosis CVA Chief Complaint: Right facial droop Travel History International Travel<30 Days: No Contact w/Intl Traveler <30 Da: No Traveled to Known Affected Are: No History of Present Illness Patient is a pleasant 86-year-old male with history of atrial fibrillation, hypertension depression/anxiety and prior CVA 11/2014: acute cva in [place] radi[place] and would appear to be small vessel dz type ischemic cva. Patient was at adult daycare (four days ago) when he began having difficulty ambulating then sustained a fall trying to get into his house. His daughter visited him night and patient was back to his baseline. On Friday patient had difficulty speaking which resolved. Today patient again had difficulty ambulating and had difficult speaking, family called [facility]. Patient presented to the ER today nonverbal with a right facial droop. Information gathered from physical exam, daughter at bedside and prior charting. Patient is able to answer yes or no questions appropriately by shaking his head. Patient denies any headache, chest pain, shortness of breath, abdominal pain, nausea, or vomiting. In talking with the patient's daughter at bedside he was switched from Coumadin to Eliquis about one month ago. In 2014 when patient had prior CVA he was off of Coumadin for about one month. Prior to today patient was able to adulate with a walker, dress and feed himself. Patient is not able to drive, grocery shop or prepare meals. Patient was living at home with his and his daughter checks on him often. Review of Systems ROS Limitations: Clinical Condition, Poor Historian Past Family Social History Past Medical History prior CVA 11/2014: acute cva in [place] and would appear to be small vessel dz type ischemic cva hypertension. Dementia with Memory Loss atrial fibrillation Patient follows with Dr. Tank Ibarra Switched from Coumadin to Eliquis about 1 month ago gout, left great toe Patient follows with podiatry, Dr. Aj depression with anxiety osteoarthritis BPH chronic kidney disease diverticulosis GERD glaucoma history of prostate cancer Past Surgical History 1) back surgery, unspecified 2) needle biopsy the prostate 3) bilateral cataract surgery 4) A. fib ablation 5) colonoscopy in 2007 showing diverticulosis 6) EGD in 2004 showing hiatal hernia, esophageal christian, and gastritis 7) right total knee arthroplasty 8) heart catheterization Reported Medications Eliquis (Apixaban) 5 Mg Tab 5 Mg PO BID Xanax (Alprazolam) 0.25 Mg Tab 0.25 Mg PO Q6H PRN Vitamin D3 (Cholecalciferol) 1,000 Unit Tab 1,000 Units PO DAILY Vitamin B-12 (Cyanocobalamin) 500 Mcg Tab 500 Mcg PO DAILY Atorvastatin (Atorvastatin Calcium) 10 Mg Tab 10 Mg PO HS Digoxin 0.125 Mg Tab 0.5 Tab PO DAILY Omeprazole 20 Mg Tab 20 Mg PO DAILY Bupropion HCl ER 24 HR (Bupropion HCl) 150 Mg Tab 150 Mg PO DAILY Namenda (Memantine) 10 Mg Tab 10 Mg PO DAILY Lasix (Furosemide) 20 Mg Tab 20 Mg PO DAILY Allergies: Coded Allergies: No Known Allergies (Verified Allergy, Unknown, 07/21/17) Family History Noncontributory Social History for 62 years Patient has 3 children all of whom live within a [address], and daughter lives locally Retired Former smoker No alcohol use No illicit street drugs Physical Exam Vital Signs Vital Signs Date Time Temp Pulse Resp B/P (MAP) Pulse Ox O2 Delivery O2 Flow Rate FiO2 07/21/17 13:33 96 21 07/21/17 12:48 79 18 136/70 (92) 98 Room Air 07/21/17 11:26 96 Room Air 07/21/17 11:16 99 07/21/17 11:12 85 18 119/64 (82) 18 Physical Exam GENERAL: This is an 86 year nonverbal old male patient SKIN: No rashes, ecchymoses or lesions. Cool and dry. HEAD: Atraumatic. Normocephalic. No temporal or scalp tenderness. EYES: Extraocular motions intact. No scleral icterus. No injection or drainage. CARDIOVASCULAR: Regular rate and rhythm RESPIRATORY: Clear to auscultation. Breath sounds equal bilaterally. GASTROINTESTINAL: Abdomen soft, non-tender, nondistended. MUSCULOSKELETAL: Extremities without clubbing, cyanosis, or edema. No joint tenderness, effusion, or edema noted. No calf tenderness. Negative Homans sign bilaterally. NEUROLOGICAL: Awake and alert. Patient is able to shake head yes or no appropriately. Patient has mild right sided weakness Laboratory Laboratory Tests Test 07/21/17 11:30 White Blood Count 13.4 Red Blood Count 4.96 Hemoglobin 13.1 Hematocrit 40.4 Mean Corpuscular Volume 81.5 Mean Corpuscular Hemoglobin 26.5 Mean Corpuscular Hemoglobin Concent 32.5 Red Cell Distribution Width 16.1 Platelet Count 84 Mean Platelet Volume 9.9 Neutrophils (%) (Auto) 69.2 Lymphocytes (%) (Auto) 12.7 Monocytes (%) (Auto) 17.7 Eosinophils (%) (Auto) 0.1 Basophils (%) (Auto) 0.3 Neutrophils # (Auto) 9.3 Lymphocytes # (Auto) 1.7 Monocytes # (Auto) 2.4 Eosinophils # (Auto) 0.0 Basophils # (Auto) 0.0 CBC Comment AUTO DIFF Differential Total Cells Counted 100 Neutrophils % (Manual) 76 Band Neutrophils % 3 Lymphocytes % 7 Monocytes % 14 Neutrophils # (Manual) 10.6 Differential Comment FINAL DIFF MANUAL Platelet Estimate LOW Platelet Morphology Comment NORMAL Ovalocytes 1+ Prothrombin Time 13.5 Prothromb Time International Ratio 1.3 Activated Partial Thromboplast Time 34.0 Blood Urea Nitrogen 28 Creatinine 1.67 Random Glucose 95 Total Protein 7.1 Albumin 3.8 Calcium Level 9.1 Alkaline Phosphatase 102 Aspartate Amino Transf (AST/SGOT) 10 Alanine Aminotransferase (ALT/SGPT) 17 Total Bilirubin 0.7 Sodium Level 143 Potassium Level 4.2 Chloride Level 110 Carbon Dioxide Level 25.4 Anion Gap 8 Estimat Glomerular Filtration Rate 39 Total Creatine Kinase 53 Troponin I LESS THAN 0.02 Result Diagram: 07/21/17 1130 07/21/17 1130 Imaging Last Impressions Chest X-Ray 07/21/17 1155 Signed Impressions: Service Date/Time: Friday, July 21, 2017 12:08 - CONCLUSION: No acute disease. Eliazar Pimentel MD Head CT 07/21/17 1122 Signed Impressions: Service Date/Time: Friday, July 21, 2017 11:55 - CONCLUSION: 1. Moderate to severe atrophic changes old infarcts. 2. No acute hemorrhage, mass or evidence of acute infarction. MD Lauri Simeoni VTE Risk Assessment Laurii VTE Risk Assessment: Mod/High Risk (score >= 2) Caprini Risk Assessment Model Point Value = 1 Point Value = 2 Point Value = 3 Point Value = 5 Age 41-60 Minor surgery BMI > 25 kg/m2 Swollen legs Varicose veins or History of unexplained or recurrent spontaneous Oral contraceptives or hormone replacement Sepsis (< 1 month) Serious lung disease, including pneumonia (< 1 month) Abnormal pulmonary function Acute myocardial infarction Congestive heart failure (< 1 month) History of inflammatory bowel disease Medical patient at bed rest Age 61-74 Arthroscopic surgery Major open surgery (> 45 min) Laparoscopic surgery (> 45 min) Malignancy Confined to bed (> 72 hours) Immobilizing plaster cast Central venous access Age >= 75 History of VTE Family history of VTE Factor V Leiden Prothrombin [id number] Lupus anticoagulant Anticardiolipin antibodies Elevated serum homocysteine Heparin-induced thrombocytopenia Other congenital or acquired thrombophilia Stroke (< 1 month) Elective arthroplasty Hip, pelvis, or leg fracture Acute spinal cord injury (< 1 month) Prophylaxis Regimen Total Risk Factor Score Risk Level Prophylaxis Regimen 0-1 Low Early ambulation 2 Moderate Order ONE of the following: *Sequential Compression Device (SCD) *Heparin 5000 units SQ BID 3-4 Higher Order ONE of the following medications: *Heparin 5000 units SQ TID *Enoxaparin/Lovenox 40 mg SQ daily (WT < 150 kg, CrCl > 30 mL/min) *Enoxaparin/Lovenox 30 mg SQ daily (WT < 150 kg, CrCl > 10-29 mL/min) *Enoxaparin/Lovenox 30 mg SQ BID (WT < 150 kg, CrCl > 30 mL/min) AND/OR *Sequential Compression Device (SCD) 5 or more Highest Order ONE of the following medications: *Heparin 5000 units SQ TID (Preferred with Epidurals) *Enoxaparin/Lovenox 40 mg SQ daily (WT < 150 kg, CrCl > 30 mL/min) *Enoxaparin/Lovenox 30 mg SQ daily (WT < 150 kg, CrCl > 10-29 mL/min) *Enoxaparin/Lovenox 30 mg SQ BID (WT < 150 kg, CrCl > 30 mL/min) AND *Sequential Compression Device (SCD) Assessment and Plan Problem List: (1) CVA (cerebral vascular accident) ICD Codes: I63.9 - Cerebral infarction, unspecified Status: Acute Plan: CVA Patient presents to the ER with reported symptoms 5 days waxing and waning CT the head reviewed and reveals: Moderate to severe atrophic changes old infarcts. No acute hemorrhage, mass-effect or evidence of acute infarction. Patient NPO at this time Await speech therapy evaluation swallow evaluation and cognitive eval IV fluids normal saline at 70 cc/h HOB flat US bilateral carotid arteries 2D echocardiogram Lipid profile in a.m. MRI and MRA brain requested Consult neurology Consult PT Atrial fibrillation Continuous telemetry Hold home digoxin 0.0625 mg p.o. daily- patient unable to swallow safely Dementia Memory loss hold home Namenda 10 mg p.o. daily- patient unable to swallow safely Anxiety/depression Hold patient's Wellbutrin 150 mg p.o. daily and Xanax 0.25 mg p.o. every 6 hours as needed for anxiety- patient unable to swallow safely DVT prophylaxis with SCDs Patient's daughter Lynette Ayers reports that she has healthcare POA. Patient's daughter wishes to discuss goals of care and code status with her mother and brothers before making a final decision. (2) A-fib ICD Codes: I48.91 - A-fib Status: Acute (3) Depression with anxiety ICD Codes: F41.8 - Depression with anxiety Status: Acute (4) Memory loss ICD Codes: R41.3 - Memory loss Status: Acute (5) CKD (chronic kidney disease) stage 3, GFR 30-59 ml/min ICD Codes: N18.3 - CKD (chronic kidney disease) stage 3, GFR 30-59 ml/min Status: Acute Assessment and Plan Patient examined. Assessment and plan formulated with Trudy Diaz PA-C. I agree with the above. hx cva and afib. recent change from coumadin to eliquis pt with some exp aphasia and right facial droop and rue weakness concern for left mca cva. will get mri/a. pt/ot/st...neurology consult. pt failed swallow eval. cont ivf and npo for now. daughter to clarify code status. pt and she want dnr but she will confirm with family. Problem Qualifiers (1) CVA (cerebral vascular accident): Qualified Codes: I63.9 - Cerebral infarction, unspecified Trudy Diaz Jul 21, 2017 14:01 Donavan Chinchilla MD Jul 21, 2017 18:28
--- NOTE | 2017-07-21 14:32 | RADRPT ---
EXAM DATE/TIME: 07/21/2017 13:41 [place] COMPARISON: US CAROTID ARTERIES, November 27, 2014, 12:01. INDICATIONS : CVA. MEDICAL HISTORY : Hypercholesterolemia. Hypertension. Gastroesophageal reflux disease. Anticoag therapy. Arthritis. Gou t. SURGICAL HISTORY : Cholecystectomy. Cardiac cath. Rt knee. Back sx. ENCOUNTER: Subsequent ACUITY: 1 day PAIN SCORE: 5/10 LOCATION: Bilateral neck PEAK SYSTOLIC VELOCITIES (cm/sec): ICA/CCA RATIO: Right: 1.0 Left: 0.9 ICA: Right: 51 Left: 82 CCA: Right: 41 Left: 59 ECA: Right: 75 Left: 39 VERTEBRAL: Right: 60 antegrade Left: 44 antegrade Elevated flow velocities and ICA/CCA ratios have been found to correlate with increased degrees of vessel stenosis, calculated as percentage of diameter relative to a normal segment of distal ICA/CCA FINDINGS: RIGHT CAROTID: Moderate calcified plaque in the carotid bulb. No significant stenosis is visualized. The waveforms are within normal limits. LEFT CAROTID: No significant stenosis is visualized. The waveforms are within normal limits. VERTEBRAL ARTERIES: Antegrade flow is seen in both vertebral arteries. MISCELLANEOUS: None. CONCLUSION: Hemodynamic profile is characteristic of less than 50% stenosis bilaterally. Smith Hilario MD on July 21, 2017 at 14:29 Board Certified Radiologist. This report was verified electronically.
[2017-07-21 19:52] LABS: BILIRUBIN, URINE NEG (NEG); BLOOD, URINE NEG (NEG); GLUCOSE,URINE NEG (NEG); KETONE, URINE NEG (NEG); MUCUS URINE FEW /lpf (OCC); NITRITE,URINE NEG (NEG); PH, URINE 5.5 (5.0-8.5); URINE COLOR YELLOW (YELLW/STRAW); URINE LEUKOCYTE ESTERASE NEG (NEG)
--- NOTE | 2017-07-21 20:23 | EKG ---
Date Performed: 07/21/2017 Time Performed: 11:30:13 PTAGE: 86 years EKG: Sinus rhythm WITH PAC AND PVC MINIMAL VOLTAGE CRITERIA FOR LVH, CONSIDER NORMAL VARIANT INFERIOR MYOCARDIAL INFAR CTION ABNORMAL ECG NO PREVIOUS TRACING DOCTOR: Ian Mari Interpretating Date/Time 07/21/2017 20:22:31
[2017-07-21] MEDS ORDERED: DOCUSATE SODIUM 50 MG/SENNA 8.6 MG TAB PO SCH (21:00)
[2017-07-21] MEDS ORDERED: ATORVASTATIN 10 MG TAB PO SCH (21:00)
[2017-07-21] MEDS ORDERED: ENALAPRILAT 1.25 MG/ML VIAL IV PUSH PRN (21:15)
[2017-07-21] MEDS: SODIUM CHLORIDE 0.9% FLUSH 10 ML FLUSH IV FLUSH SCH (21:16)
[2017-07-21] MEDS: LORazepam 2 MG/ML VIAL IV PUSH PRN (22:47)
[2017-07-22] VITALS (7 sets, daily range): BP systolic 126–150; BP diastolic 66–91; PULSE 56–133; RESP 18–22; TEMP 97–98.5; O2SAT 92–100
[2017-07-22 07:43] LABS: AUTOMATED NEUTROPHIL # 9.2 TH/MM3 (1.8-7.7); BASOPHIL % 0.2 % (0.0-2.0); EOSINOPHIL % 0.1 % (0.0-4.0); HEMATOCRIT 39.7 % (39.0-51.0); LYMPH % 13.8 % (9.0-44.0); MEAN CELL VOLUME 81.6 FL (80.0-100.0); MEAN CORPUSCULAR HEMOGLOBIN 26.8 PG (27.0-34.0); MEAN CORPUSCULAR HGB CONC 32.8 % (32.0-36.0); MEAN PLATELET VOLUME 10.7 FL (7.0-11.0); MONO % 21.5 % (0.0-8.0); MONOCYTE # 3.1 TH/MM3 (0-0.9); NEUT % 64.4 % (16.0-70.0); PLATELET COUNT 81 TH/MM3 (150-450); RED BLOOD COUNT 4.86 MIL/MM3 (4.50-5.90); RED CELL DISTRIBUTION WIDTH 15.8 % (11.6-17.2); WHITE BLOOD COUNT 14.2 TH/MM3 (4.0-11.0)
[2017-07-22 08:11] LABS: BICARBONATE 22.9 MEQ/L (21.0-32.0); CALCIUM 8.8 MG/DL (8.5-10.1)
[2017-07-22 08:13] LABS: CHOLESTEROL/ HDL RATIO 2.06 RATIO; CREATININE 1.34 MG/DL (0.60-1.30); HDL CHOLESTEROL 45.1 MG/DL (40.0-60.0)
[2017-07-22 08:48] LABS: ACANTHOCYTES OCC (NORMAL)
[2017-07-22 08:49] LABS: OVALOCYTES 1+ (NORMAL)
[2017-07-22] MEDS ORDERED: DIGOXIN 0.125 MG TAB PO SCH (09:00)
[2017-07-22] MEDS ORDERED: MEMANTINE HCL 10 MG TAB PO SCH (09:00)
[2017-07-22] MEDS ORDERED: buPROPion HCL 150 MG SUSTAINED RELEASE TAB PO SCH (09:00)
[2017-07-22] MEDS ORDERED: PANTOPRAZOLE SOD 20 MG DELAYED RELEASE TAB PO SCH (09:00)
[2017-07-22] MEDS ORDERED: FUROSEMIDE 20 MG TAB PO SCH (09:00)
--- NOTE | 2017-07-22 10:09 | PD.CONS ---
History of Present Illness Service Neurology Consult Requested By Dr. James Reason for Consult CVA Primary Care Physician Jerod Osorio MD History of Present Illness 86 y/o male w hx of CVA in 2014 with left sided weakness, a-fib and short term memory loss, brought to ER when he developed right sided facial droop. His daughter notes that starting last week he began having worsening gait and weakness. Started falling last week. Then yesterday noted right sided facial droop with worsening speech. Pt now is unable to speak but can answer by shaking head yes or no. 1 month ago Coumadin was changed to Eliquis, pt has been compliant with his medication. Daughter thinks that last and Friday he may have taken extra doses of all of his pills as she fills his pill boxes for the week and 2 days were missing. Denies any recent infections. No hx of seizures. Currently on Wellbutrin for mood. Also takes Namenda for memory (Sylvia Cho) Review of Systems Constitutional: Weakness Eye: Negative Except HPI ENMT: Negative except HPI Respiratory: Negative except HPI Cardiovascular: Negative except HPI Gastrointestinal: Negative except HPI Alessandro/Lymph: Negative except HPI Musculoskeletal: Negative except HPI Neurologic: Abnormal balance, Confusion Psychiatric: Depression All other ROS: ROS reviewed as documented in chart (Sylvia Cho) Past Family Social History Allergies: Coded Allergies: No Known Allergies (Verified Allergy, Unknown, 07/21/17) Past Medical History cva, a-fib, memory loss/dementia HTN gout, depression arthritis BPH chronic kidney disease glaucoma history of prostate cancer Past Surgical History back surgery, cataract, cardiac ablation, heart cath, total right knee Active Ordered Medications Current Medications Medications (Trade) Dose Ordered Sig/Jun Route Start Time Stop Time Status Last Admin (NS Flush) 2 ml UNSCH PRN IV FLUSH 07/21/17 13:30 (NS Flush) 2 ml BID IV FLUSH 07/21/17 21:00 07/21/17 21:16 (Tylenol) 650 mg Q4H PRN PO 07/21/17 13:30 (Zofran Inj) 4 mg Q6H PRN IVP 07/21/17 13:30 (Narcan Inj) 0.4 mg UNSCH PRN IV PUSH 07/21/17 13:30 (Milk Of Magnesia Liq) 30 ml Q12H PRN PO 07/21/17 13:30 (Lipitor) 10 mg HS PO 07/21/17 21:00 (Wellbutrin Sr) 150 mg DAILY PO 07/22/17 09:00 (Namenda) 10 mg DAILY PO 07/22/17 09:00 (Pill Splitter) 1 ea UNSCH PRN OTHER 07/21/17 14:00 (Ativan Inj) 0.5 mg Q4H PRN IV PUSH 07/21/17 21:15 07/21/17 22:47 (Vasotec Inj) 1.25 mg Q6H PRN IV PUSH 07/21/17 21:15 Family History noncontributory Social History lives at home with his (Sylvia Cho) Exam I&O / VS 07/22/17 07/22/17 07/23/17 15:00 23:00 07:00 # Voids 3 Vital Signs Date Time Temp Pulse Resp B/P (MAP) Pulse Ox O2 Delivery O2 Flow Rate FiO2 07/22/17 08:00 98.5 85 22 149/91 (110) 93 07/22/17 04:00 97.4 106 18 126/73 (90) 92 07/22/17 04:00 99 07/22/17 00:00 97.0 56 18 141/66 (91) 100 07/21/17 21:45 99 07/21/17 20:00 98.0 54 18 171/95 (120) 91 07/21/17 16:00 97.8 89 21 137/80 (99) 93 07/21/17 14:25 70 18 135/84 (101) 98 07/21/17 13:33 96 21 07/21/17 12:48 79 18 136/70 (92) 98 Room Air 07/21/17 11:26 96 Room Air 07/21/17 11:16 99 07/21/17 11:12 85 18 119/64 (82) 18 General: No acute distress Eye: PERRL, EOMI Respiratory: Non-labored respirations Cardiology: Normal rate Psychiatric: Cooperative Exam Comments mild right sided facial droop, right hemibody weakness 2-3-/5, left 5/5, right drift, decreased coordination on RUE, normal on left, pt nonverbal, expressive aphasia, can answer yes- no questions with shaking head, sensation intact to temp and light touch, unable to do f-n-f on the right, normal on the left, brisk reflexes throughout, mildly increased tone on the left, gait withheld (Sylvia Cho) Review/Management Diagnosis ?encephalopathy, infectious vs metabolic WBC elevated UA clear will set up EEG Diagnosis/Plan: (1) CVA (cerebral vascular accident) ICD Codes: I63.9 - Cerebral infarction, unspecified Status: Acute Plan: MRI and MRA are pending, CUS no significant stenosis, currently on Eliquis for A-fib, ECHO pending, control BP and lipids work with PT, OT, ST failed swallow study will likely benefit from rehab (Sylvia Cho) Diagnosis/Plan: (1) Acute ischemic left MCA stroke ICD Codes: I63.512 - Cerebral infarction due to unspecified occlusion or stenosis of left middle cerebral artery Status: Acute Plan: d/w PA. agree with above rt ue>le paresis with expressive aphasia mri brain reviewed. official report pending. + left mca subcortical stroke failed eliquis if he was taking it daily likely cardioembolic recs go back to coumadin unless contraindication. start low dose and gradually titrate for inr 2-2.5 f/u echo d/w pt/spouse/son (2) A-fib ICD Codes: I48.91 - A-fib Status: Chronic (3) HTN (hypertension) ICD Codes: I10 - HTN (hypertension) Status: Chronic (4) DM (diabetes mellitus) ICD Codes: E11.9 - DM (diabetes mellitus) Status: Chronic (Umang Renteria MD) Problem Qualifiers (1) CVA (cerebral vascular accident): Qualified Codes: I63.9 - Cerebral infarction, unspecified (2) A-fib: Qualified Codes: I48.2 - Chronic atrial fibrillation (3) HTN (hypertension): Qualified Codes: I10 - Essential (primary) hypertension (4) DM (diabetes mellitus): Sylvia Cho July 22, 2017 10:09 Umang Renteria MD July 22, 2017 15:41
[2017-07-22] MEDS: LORazepam 2 MG/ML VIAL IV PUSH PRN (10:45)
[2017-07-22] MEDS: SODIUM CHLORIDE 0.9% FLUSH 10 ML FLUSH IV FLUSH SCH ×2 (10:45→21:18)
[2017-07-22] MEDS ORDERED: APIXABAN 5 MG TABLET PO SCH (11:00)
--- NOTE | 2017-07-22 11:37 | HHI.PR ---
Subjective Remarks Patient resting in chair with daughter at bedside Patient remains nonverbal with expressive aphagia right upper and lower extremity weaker than left Objective Vitals Vital Signs Date Time Temp Pulse Resp B/P (MAP) Pulse Ox O2 Delivery O2 Flow Rate FiO2 07/22/17 08:00 98.5 85 22 149/91 (110) 93 07/22/17 04:00 97.4 106 18 126/73 (90) 92 07/22/17 04:00 99 07/22/17 00:00 97.0 56 18 141/66 (91) 100 07/21/17 21:45 99 07/21/17 20:00 98.0 54 18 171/95 (120) 91 07/21/17 16:00 97.8 89 21 137/80 (99) 93 07/21/17 14:25 70 18 135/84 (101) 98 07/21/17 13:33 96 21 07/21/17 12:48 79 18 136/70 (92) 98 Room Air 07/22/17 07/22/17 07/23/17 15:00 23:00 07:00 # Voids 3 Result Diagram: 07/22/17 0549 07/22/17 0549 Other Results Laboratory Tests Test 07/21/17 11:30 07/21/17 18:40 07/22/17 05:49 White Blood Count 13.4 TH/MM3 14.2 TH/MM3 Red Blood Count 4.96 MIL/MM3 4.86 MIL/MM3 Hemoglobin 13.1 GM/DL 13.0 GM/DL Hematocrit 40.4 % 39.7 % Mean Corpuscular Volume 81.5 FL 81.6 FL Mean Corpuscular Hemoglobin 26.5 PG 26.8 PG Mean Corpuscular Hemoglobin Concent 32.5 % 32.8 % Red Cell Distribution Width 16.1 % 15.8 % Platelet Count 84 TH/MM3 81 TH/MM3 Mean Platelet Volume 9.9 FL 10.7 FL Neutrophils (%) (Auto) 69.2 % 64.4 % Lymphocytes (%) (Auto) 12.7 % 13.8 % Monocytes (%) (Auto) 17.7 % 21.5 % Eosinophils (%) (Auto) 0.1 % 0.1 % Basophils (%) (Auto) 0.3 % 0.2 % Neutrophils # (Auto) 9.3 TH/MM3 9.2 TH/MM3 Lymphocytes # (Auto) 1.7 TH/MM3 2.0 TH/MM3 Monocytes # (Auto) 2.4 TH/MM3 3.1 TH/MM3 Eosinophils # (Auto) 0.0 TH/MM3 0.0 TH/MM3 Basophils # (Auto) 0.0 TH/MM3 0.0 TH/MM3 CBC Comment AUTO DIFF AUTO DIFF Differential Total Cells Counted 100 Neutrophils % (Manual) 76 % Band Neutrophils % 3 % Lymphocytes % 7 % Monocytes % 14 % Neutrophils # (Manual) 10.6 TH/MM3 Differential Comment FINAL DIFF MANUAL AUTO DIFF CONFIRMED Platelet Estimate LOW LOW Platelet Morphology Comment NORMAL ENLARGED Ovalocytes 1+ 1+ Prothrombin Time 13.5 SEC Prothromb Time International Ratio 1.3 RATIO Activated Partial Thromboplast Time 34.0 SEC Blood Urea Nitrogen 28 MG/DL 21 MG/DL Creatinine 1.67 MG/DL 1.34 MG/DL Random Glucose 95 MG/DL 81 MG/DL Total Protein 7.1 GM/DL Albumin 3.8 GM/DL Calcium Level 9.1 MG/DL 8.8 MG/DL Alkaline Phosphatase 102 U/L Aspartate Amino Transf (AST/SGOT) 10 U/L Alanine Aminotransferase (ALT/SGPT) 17 U/L Total Bilirubin 0.7 MG/DL Sodium Level 143 MEQ/L 144 MEQ/L Potassium Level 4.2 MEQ/L 3.9 MEQ/L Chloride Level 110 MEQ/L 111 MEQ/L Carbon Dioxide Level 25.4 MEQ/L 22.9 MEQ/L Anion Gap 8 MEQ/L 10 MEQ/L Estimat Glomerular Filtration Rate 39 ML/MIN 51 ML/MIN Total Creatine Kinase 53 U/L Troponin I LESS THAN 0.02 NG/ML Urine Color YELLOW Urine Turbidity CLEAR Urine pH 5.5 Urine Specific [place] 1.013 Urine Protein TRACE mg/dL Urine Glucose (UA) NEG mg/dL Urine Ketones NEG mg/dL Urine Occult Blood NEG Urine Nitrite NEG Urine Bilirubin NEG Urine Urobilinogen LESS THAN 2.0 MG/DL Urine Leukocyte Esterase NEG Urine RBC 2 /hpf Urine Mucus FEW /lpf Microscopic Urinalysis Comment CATH-CULT NOT IND Acanthocytes OCC Triglycerides Level 75 MG/DL Cholesterol Level 93 MG/DL LDL Cholesterol 33 MG/DL HDL Cholesterol 45.1 MG/DL Cholesterol/HDL Ratio 2.06 RATIO Imaging Last Impressions Chest X-Ray 07/21/17 1155 Signed Impressions: Service Date/Time: Friday, July 21, 2017 12:08 - CONCLUSION: No acute disease. Eliazar Pimentel MD Head CT 07/21/17 1122 Signed Impressions: Service Date/Time: Friday, July 21, 2017 11:55 - CONCLUSION: 1. Moderate to severe atrophic changes old infarcts. 2. No acute hemorrhage, mass or evidence of acute infarction. Eliazar Pimentel MD Objective Remarks GENERAL: This is an 86 yea old nonverbal male patient SKIN: No rashes, ecchymoses or lesions. Cool and dry. EYES: Extraocular motions intact. No scleral icterus. No injection or drainage. CARDIOVASCULAR: Regular rate and rhythm RESPIRATORY: Clear to auscultation. Breath sounds equal bilaterally. GASTROINTESTINAL: Abdomen soft, non-tender, nondistended. MUSCULOSKELETAL: Extremities without clubbing, cyanosis, or edema. No joint tenderness, effusion, or edema noted. No calf tenderness. Negative Homans sign bilaterally. NEUROLOGICAL: Patient is able to shake head yes or no appropriately. continues to have expressive aphagia and right sided weakness A/P Problem List: (1) CVA (cerebral vascular accident) ICD Codes: I63.9 - Cerebral infarction, unspecified Status: Acute Plan: CVA Patient presents to the ER with reported symptoms 5 days waxing and waning CT the head reviewed and reveals: Moderate to severe atrophic changes old infarcts. No acute hemorrhage, mass-effect or evidence of acute infarction. Patient NPO at this time Speech therapy swallow evaluation and cognitive eval- recommending NPO IV fluids normal saline at 70 cc/h US bilateral carotid arteries revealed hemodynamic profile is characteristic of less than 50% stenosis bilaterally 2D echocardiogram pending Lipid profile reveals LDL of 33 MRI and MRA brain requested and pending Consult neurology, Neurology has ordered EEG Consult PT recommending rehab at time of DC Atrial fibrillation Continuous telemetry Hold home digoxin 0.0625 mg p.o. daily and Eliquis- patient unable to swallow safely Dementia Memory loss hold home Namenda 10 mg p.o. daily- patient unable to swallow safely Anxiety/depression Hold patient's Wellbutrin 150 mg p.o. daily and Xanax 0.25 mg p.o. every 6 hours as needed for anxiety- patient unable to swallow safely DVT prophylaxis with SCDs Patient's daughter Lynette Ayers reports that she has healthcare POA. Patient's daughter wishes to discuss goals of care and code status with her mother and brothers before making a final decision. (2) A-fib ICD Codes: I48.91 - A-fib Status: Chronic (3) Depression with anxiety ICD Codes: F41.8 - Depression with anxiety Status: Chronic (4) Memory loss ICD Codes: R41.3 - Memory loss Status: Chronic (5) CKD (chronic kidney disease) stage 3, GFR 30-59 ml/min ICD Codes: N18.3 - CKD (chronic kidney disease) stage 3, GFR 30-59 ml/min Status: Chronic Assessment and Plan Patient examined. Assessment and plan formulated with Trudy Diaz PA-C. I agree with the above. appears to be acute left mca cva exp aphasia appears to be aspiration. more chest congestion family bedside pt going for mri unable to swallow. neurology here to see. family deciding on code status. Problem Qualifiers (1) CVA (cerebral vascular accident): Qualified Codes: I63.9 - Cerebral infarction, unspecified (2) A-fib: Qualified Codes: I48.2 - Chronic atrial fibrillation Trudy Diaz July 22, 2017 11:37 Donavan Chinchilla MD July 22, 2017 15:59
[2017-07-22] MEDS: SODIUM CHLOR 0.9% 1000 ML INJ 1,000 ML IV SCH (14:45)
--- NOTE | 2017-07-22 15:43 | RADRPT ---
EXAM DATE/TIME: 07/22/2017 14:59 [facility] COMPARISON: CT BRAIN W/O CONTRAST, July 21, 2017, 11:55. MRA BRAIN W/O CONTRAST, November 27, 2014, 14:39. INDICATIONS : CVA. Right sided weakness, non verbal. MEDICAL HISTORY : Carcinoma, prostate. Cardiovascular disease Stroke SURGICAL HISTORY : Cholecystectomy. Back sx, Knee sx. ENCOUNTER: Initial ACUITY: 1 day PAIN SCORE: 0/10 LOCATION: Right cranial Please note a normal MRA of the brain does not entirely exclude the possibility of a small aneurysm, nor the possibility of distal intracranial vessel disease. TECHNIQUE: 3D time of flight MRA was performed. Source images, multiplanar STS MIP, and 3D volume MIP reconstru ctions were reviewed. FINDINGS: There is a changed configuration to the A1 segment on the right side when compared to prior MRA in 15. There is absent flow in the proximal right A1 segment. There is intact flow in the anterior com municating artery and symmetric appearance to the A2 segments. The middle cerebral arteries and post erior circulation is intact. No flow seen in either PCOM. CONCLUSION: 1. Absent flow in the right A1 segment and reconstitution of flow in the A2 segment via a patent ante rior communicating artery. Smith Hilario MD on July 22, 2017 at 15:33 Board Certified Radiologist. This report was verified electronically.
--- NOTE | 2017-07-22 16:00 | RADRPT ---
EXAM DATE/TIME: 07/22/2017 14:59 [facility] COMPARISON: CT BRAIN W/O CONTRAST, July 21, 2017, 11:55. MRI BRAIN W/O CONTRAST, November 27, 2014, 14:39. INDICATIONS : CVA. Right sided weakness. MEDICAL HISTORY : Carcinoma, prostate. Cardiovascular disease Stroke SURGICAL HISTORY : Cholecystectomy. Back sx, Knee sx. ENCOUNTER: Initial ACUITY: 1 day PAIN SCORE: 1/10 LOCATION: Right cranial TECHNIQUE: Multiplanar, multisequence MRI of the brain was performed without contrast. FINDINGS: There is evidence of acute infarction in the left jones radiata with a focal area of restricted diff usion measuring 1.6 cm. No evidence of acute blood products and no surrounding cerebral edema. Ther e is abnormal appearance to the white matter diffusely throughout the supratentorial brain characteri stic of diffuse ischemic change. Old lacunar infarct is present in the posterior right jones radiat a. The ventricles are moderately enlarged as are the basal cisterns. No evidence of acute or chroni c blood products. No extra-axial fluid collections. The posterior fossa structures are grossly inta ct. The visualized structures the orbits and perinasal sinuses are intact. CONCLUSION: 1. Acute nonhemorrhagic infarct in the left periventricular jones radiata. 2. Diffuse severe ischemic white matter change throughout the supratentorial brain and moderate centr al subcortical atrophy. Smith Hilario MD on July 22, 2017 at 15:42 Board Certified Radiologist. This report was verified electronically.
[2017-07-22] MEDS ORDERED: HYOSCYAMINE 0.125 MG TAB PO PRN (16:45)
--- NOTE | 2017-07-22 18:20 | MG ---
cc: Tank Huddleston MD DESCRIPTION: CT shows a lot of atrophy, poor vision. Wellbutrin, Namenda. Recording shows a diffuse lower amplitude rhythm with a lot of low-amplitude beta rhythms, some alpha rhythms and occasionally some slow theta in the 7 Hz range. Recording overall is synchronous and symmetric. No epileptiform or seizure activity is noted. There are no hemisphere asymmetries. He is noted to snore. He does not reach stage II sleep, however. Photic stimulation and hyperventilation are not performed. IMPRESSION: Some mild diffuse theta slowing. Otherwise, an unremarkable recording. There is some snoring going on. Sleep apnea could be considered if clinically indicated. In addition, the patient is on Wellbutrin, which can lower the seizure threshold and if seizure is thought likely, that should be discontinued. MD ACTHERINE Lackey/HUI , 06:09 PM , 06:18 PM
[2017-07-22] MEDS ORDERED: LORazepam 2 MG/ML VIAL IV PRN (20:30)
[2017-07-23] VITALS (26 sets, daily range): BP systolic 115–164; BP diastolic 59–95; PULSE 97–156; RESP 12–36; TEMP 97.2–100.3; O2SAT 90–99
[2017-07-23] MEDS ORDERED: DIGOXIN 0.5 MG/2 ML VIAL IV PUSH ONE ×2 (01:00→06:00)
--- NOTE | 2017-07-23 02:05 | HHI.PR ---
Addendum to Inpatient Note Addendum Reason: Additional Documentation Additional Information Received call appx 1 AM re; pt with asymptomatic narrow complex tachycardia with rate remaining in 130-150s. Pt was sleeping with no apparent symptoms. I reviewed his chart and noted that he was admitted for stroke and has hx of Afib typically on digoxin. Digoxin held due to inability to safely swallow after stroke. I ordered digoxin IV 0.125mg and EKG. EKG reportedly demonstrated sinus tach with PAC, PVC per nurse. Rate remains in 130-140s per nurse and now pt is having some tachypnea as well. I ordered CXR and spoke with Dr Dupree in [facility] who agrees to see pt presently. I updated pt's nurse on plan of care. Per review of notes, family has been discussing code status and prison care plan. Pt is Full code at this point. Frankie Condon MD PhD July 23, 2017 02:05
--- NOTE | 2017-07-23 02:48 | RADRPT ---
EXAM DATE/TIME: 07/23/2017 02:10 [facility] COMPARISON: CHEST SINGLE AP, July 21, 2017, 12:08. INDICATIONS : Tachycardia, short of breath. MEDICAL HISTORY : a fib. SURGICAL HISTORY : None. ENCOUNTER: Subsequent ACUITY: 1 week PAIN SCORE: 0/10 LOCATION: Bilateral chest FINDINGS: A single view of the chest demonstrates the lungs to be symmetrically hypoinflated with minimal bibas ilar atelectatic changes. No confluent infiltrate or effusion. Accounting for the degree of inspirati on the heart size is normal. Atherosclerotic calcification of the aortic arch. Osseous structures are intact. CONCLUSION: Hypoinflation with minimal bibasilar atelectatic changes. Reji Gomez MD on July 23, 2017 at 2:46 Board Certified Radiologist. This report was verified electronically.
[2017-07-23] MEDS ORDERED: ETOMIDATE 40 MG/20 ML VIAL ONE (04:15)
--- NOTE | 2017-07-23 04:39 | PD.CONS ---
[facility] Service Critical Care Medicine Consult Requested By Primary Care Physician Jerod Osorio MD History of Present Illness This is a 86-year-old male with history of atrial fibrillation, hypertension depression/anxiety and prior CVA 11/2014: acute CVA in jones radiata and what appear to be small vessel disease type ischemic CVA. Patient was at adult daycare (four days ago) when he began having difficulty ambulating then sustained a fall trying to get into his house. His daughter visited him night and patient was back to his baseline. On Friday patient had difficulty speaking which resolved. The day of admission the patient again had difficulty ambulating and had difficult speaking, and a family called [facility]. Patient presented to the ER nonverbal with a right facial droop. Prior to this admission the patient was able to ambulate with a walker, dress and feed himself. The patient was anticoagulated with Eliquis and he was not a candidate for TPA administration. He was admitted to neuroscience unit where today early in the morning he developed uncontrolled rapid A. fib with RVR, and severe respiratory distress requiring emergent intubation. The CODE STATUS was discussed by Kristal [facility] with patient's prior to intubation who requested intubation and mechanical ventilation. Review of Systems ROS Unable to obtain patient is sedated and intubated Past Family Social History Allergies: Coded Allergies: No Known Allergies (Verified Allergy, Unknown, 07/21/17) Past Medical History prior CVA 11/2014: acute cva in jones radiata and would appear to be small vessel dz type ischemic cva hypertension. Dementia with Memory Loss atrial fibrillation Patient follows with Dr. Tank Ibarra Switched from Coumadin to Eliquis about 1 month ago gout, left great toe Patient follows with podiatry, Dr. Aj depression with anxiety osteoarthritis BPH chronic kidney disease diverticulosis GERD glaucoma history of prostate cancer Past Surgical History 1) back surgery, unspecified 2) needle biopsy the prostate 3) bilateral cataract surgery 4) A. fib ablation 5) colonoscopy in 2007 showing diverticulosis 6) EGD in 2004 showing hiatal hernia, esophageal christian, and gastritis 7) right total knee arthroplasty 8) heart catheterization Reported Medications Reported Meds & Active Scripts Active Reported Eliquis (Apixaban) 5 Mg Tab 5 Mg PO BID Xanax (Alprazolam) 0.25 Mg Tab 0.25 Mg PO Q6H PRN Vitamin D3 (Cholecalciferol) 1,000 Unit Tab 1,000 Units PO DAILY Vitamin B-12 (Cyanocobalamin) 500 Mcg Tab 500 Mcg PO DAILY Atorvastatin (Atorvastatin Calcium) 10 Mg Tab 10 Mg PO HS Digoxin 0.125 Mg Tab 0.5 Tab PO DAILY Omeprazole 20 Mg Tab 20 Mg PO DAILY Bupropion HCl ER 24 HR (Bupropion HCl) 150 Mg Tab 150 Mg PO DAILY Namenda (Memantine) 10 Mg Tab 10 Mg PO DAILY Lasix (Furosemide) 20 Mg Tab 20 Mg PO DAILY Active Ordered Medications Current Medications Medications (Trade) Dose Ordered Sig/Jun Route PRN Reason Start Time Stop Time Status Last Admin Dose Admin Sodium Chloride (NS Flush) 2 ml UNSCH PRN IV FLUSH FLUSH AFTER USING IV ACCESS 07/21/17 13:30 Sodium Chloride (NS Flush) 2 ml BID IV FLUSH 07/21/17 21:00 07/22/17 21:18 Acetaminophen (Tylenol) 650 mg Q4H PRN PO TEMP > 100.4 07/21/17 13:30 Future Hold Ondansetron HCl (Zofran Inj) 4 mg Q6H PRN IVP NAUSEA OR VOMITING 07/21/17 13:30 Naloxone HCl (Narcan Inj) 0.4 mg UNSCH PRN IV PUSH SEE LABEL COMMENTS 07/21/17 13:30 Magnesium Hydroxide (Milk Of Magnsaira Liq) 30 ml Q12H PRN PO Mild constipation 07/21/17 13:30 Future Hold Atorvastatin Calcium (Lipitor) 10 mg HS PO 07/21/17 21:00 Future Hold Bupropion HCl (Wellbutrin Sr) 150 mg DAILY PO 07/22/17 09:00 Future Hold 07/22/17 10:45 Memantine (Namenda) 10 mg DAILY PO 07/22/17 09:00 Future Hold 07/22/17 10:45 Miscellaneous (Pill Splitter) 1 ea UNSCH PRN OTHER SEE LABEL COMMENTS 07/21/17 14:00 Enalaprilat (Vasotec Inj) 1.25 mg Q6H PRN IV PUSH sbp > 220 07/21/17 21:15 Apixaban (Eliquis) 5 mg BID PO 07/22/17 11:00 Future Hold Sodium Chloride 1,000 ml @ 50 mls/hr Q20H IV 07/22/17 14:45 07/22/17 14:45 Hyoscyamine Sulfate (Levsin) 0.25 mg Q4H PRN PO INCREASED SECRETIONS 07/22/17 16:45 Lorazepam (Ativan Inj) 0.5 mg Q8H PRN IV SEVERE AGITATION 07/22/17 20:30 07/22/17 21:14 Digoxin (Lanoxin Inj) 0.125 mg ONCE ONCE IV PUSH 07/23/17 06:00 07/23/17 06:01 Chlorhexidine Gluconate (Peridex 0.12% Liq) 15 ml BID@08,20 MT 07/23/17 08:00 UNV Propofol 100 ml @ 0 mls/hr TITRATE PRN IV SEDATION 07/23/17 04:45 UNV Family History No family history significant of early coronary artery disease Social History Patient is a former smoker, no recent use, no illicit drug or alcohol abuse. Physical Exam Vital Signs Vital Signs Date Time Temp Pulse Resp B/P (MAP) Pulse Ox O2 Delivery O2 Flow Rate FiO2 07/23/17 02:57 97 Non-Rebreather 15.00 07/23/17 02:51 94 Non-Rebreather 15.00 07/23/17 02:31 98.5 140 30 146/87 (106) 94 07/23/17 01:43 99.2 145 30 142/95 (111) 95 07/23/17 01:35 143 07/23/17 01:34 94 Venturi Mask 3.00 24 07/23/17 01:29 99.5 129 30 164/79 (107) 94 07/23/17 01:12 99.6 150 24 126/77 (93) 94 07/23/17 01:03 156 07/22/17 20:00 124 07/22/17 20:00 98.4 133 20 150/80 (103) 92 07/22/17 16:00 97.8 74 20 132/81 (98) 94 07/22/17 12:00 97.5 78 20 146/87 (106) 93 07/22/17 09:08 93 21 07/22/17 08:00 98.5 85 22 149/91 (110) 93 Physical Exam GENERAL: Elderly gentleman sedated and intubated SKIN: Warm and dry. HEAD: Normocephalic. EYES: No scleral icterus. No injection or drainage. NECK: Supple, trachea midline. No JVD or lymphadenopathy. CARDIOVASCULAR: Regular rate and rhythm without murmurs, gallops, or rubs. RESPIRATORY: Breath sounds equal bilaterally. No accessory muscle use. GASTROINTESTINAL: Abdomen soft, non-tender, nondistended. MUSCULOSKELETAL: No cyanosis, or edema. BACK: Nontender without obvious deformity. NEURO EXAM: Mental Status: The patient is sedated and intubated Laboratory Laboratory Tests Test 07/22/17 05:49 White Blood Count 14.2 Red Blood Count 4.86 Hemoglobin 13.0 Hematocrit 39.7 Mean Corpuscular Volume 81.6 Mean Corpuscular Hemoglobin 26.8 Mean Corpuscular Hemoglobin Concent 32.8 Red Cell Distribution Width 15.8 Platelet Count 81 Mean Platelet Volume 10.7 Neutrophils (%) (Auto) 64.4 Lymphocytes (%) (Auto) 13.8 Monocytes (%) (Auto) 21.5 Eosinophils (%) (Auto) 0.1 Basophils (%) (Auto) 0.2 Neutrophils # (Auto) 9.2 Lymphocytes # (Auto) 2.0 Monocytes # (Auto) 3.1 Eosinophils # (Auto) 0.0 Basophils # (Auto) 0.0 CBC Comment AUTO DIFF Differential Comment AUTO DIFF CONFIRMED Platelet Estimate LOW Platelet Morphology Comment ENLARGED Ovalocytes 1+ Acanthocytes OCC Blood Urea Nitrogen 21 Creatinine 1.34 Random Glucose 81 Calcium Level 8.8 Sodium Level 144 Potassium Level 3.9 Chloride Level 111 Carbon Dioxide Level 22.9 Anion Gap 10 Estimat Glomerular Filtration Rate 51 Triglycerides Level 75 Cholesterol Level 93 LDL Cholesterol 33 HDL Cholesterol 45.1 Cholesterol/HDL Ratio 2.06 Result Diagram: 07/22/17 0549 07/22/17 0549 Imaging Last 24 hours Impressions Chest X-Ray 07/23/17 0000 Signed Impressions: Service Date/Time: Sunday, July 23, 2017 02:10 - CONCLUSION: Hypoinflation with minimal bibasilar atelectatic changes. Reji Gomez MD Assessment and Plan Assessment and Plan Acute respiratory failure -Intubated for airway protection -Continue mechanical ventilation -No weaning until neurologically and hemodynamically improve Acute CVA -Head of bed at 30 -US bilateral carotid arteries -2D echocardiogram -Lipid profile in a.m. -PT and OT as tolerated -Management per neurology Consult PT Atrial fibrillation -Continuous telemetry -IV digoxin administered on the floor by primary service -Lopressor IV as needed Dementia -Memory loss -Namenda 10 mg p.o. daily Anxiety/depression -Resume Wellbutrin 150 mg p.o. daily and Xanax 0.25 mg p.o. every 6 hours as needed for anxiety DVT GI prophylaxis -Harman's and SCDs -Subcu heparin -Pepcid Critical Care: The total critical care time was 35 minutes. Time to perform other separately billable procedures was not included in the critical care time. Kaleb Dupree MD July 23, 2017 4:39 am
--- NOTE | 2017-07-23 05:00 | PD.PROCEDR ---
Procedure Note Procedure Endotracheal Intubation A time-out was completed verifying correct patient, procedure, site, positioning , and special equipment if applicable. The patient was placed in a flat position. Sedation was obtained using Etomidate 20mg. The patient was easily ventilated using an ambu bag. The [employer]/ MAC 4 BLADE was used and inserted into the oropharynx at which time there was a Grade 1 view of the vocal cords. A 8-bengali endotracheal tube was inserted and visualized going through the vocal cords. The stylette was removed. Colorimetric change was visualized on the CO2 meter. Breath sounds were heard in both lung [place] equally. The endotracheal tube was placed at 23 cm, measured at the teeth. A chest x-ray was ordered to assess for pneumothorax and verify endotrachealtube placement. Estimated Blood Loss: 0 The patient tolerated the procedure well and there were no complications. Kaleb Dupree MD July 23, 2017 5:00 am
[2017-07-23] MEDS: FAMOTIDINE 20 MG/2 ML VIAL IV PUSH SCH ×2 (05:11→17:00)
[2017-07-23] MEDS: CHLORHEXIDINE 0.12% (ORAL KIT) 15 ML CUP MT SCH ×2 (05:18→20:00)
[2017-07-23] MEDS: SODIUM CHLOR 0.9% 1000 ML INJ 1,000 ML IV SCH (05:19)
[2017-07-23] MEDS: PROPOFOL 1000 MG/100 ML INJ 100 ML IV PRN (05:19)
--- NOTE | 2017-07-23 05:36 | RADRPT ---
EXAM DATE/TIME: 07/23/2017 04:44 [facility] COMPARISON: CHEST SINGLE AP, July 23, 2017, 2:10. INDICATIONS : Shortness of breath. MEDICAL HISTORY : Carcinoma, prostatic. Stroke. Cardiovascular disease SURGICAL HISTORY : Cholecystectomy. Back sx, Knee sx ENCOUNTER: Subsequent ACUITY: 3 days PAIN SCORE: Non-responsive. LOCATION: Bilateral chest FINDINGS: A single view of the chest demonstrates the lungs to be symmetrically aerated without evidence of mas s, infiltrate or effusion. The cardiomediastinal contours are unremarkable. Degenerative spurring of the thoracolumbar spine. Endotracheal to the tip appropriately positioned above the neal. Nasogast otilia tube is somewhat shallow the side port above the GE junction.. CONCLUSION: 1. Lungs are clear. 2. Nasogastric tube with the side port above the GE junction. This should probably be advanced a few centimeters. Reji Gomez MD on July 23, 2017 at 5:33 Board Certified Radiologist. This report was verified electronically.
[2017-07-23] MEDS ORDERED: ETOMIDATE 20 MG/10 ML VIAL IV PUSH PRN (05:45)
[2017-07-23] MEDS ORDERED: HEPARIN SODIUM - SQ 10,000 UNITS/ML VIAL SQ SCH (06:00)
[2017-07-23 06:05] LABS: BACTERIA, URINE RARE /hpf; BILIRUBIN, URINE NEG (NEG); BLOOD, URINE TRACE (NEG); GLUCOSE,URINE NEG (NEG); HYALINE CAST, URINE 3 /lpf (RARE); KETONE, URINE 10 mg/dL (NEG); MUCUS URINE FEW /lpf (OCC); NITRITE,URINE NEG (NEG); PH, URINE 5.5 (5.0-8.5); SQUAMOUS EPITHELIAL CELL URINE <1 /hpf (0-5); URINE COLOR LIGHT-YELLOW (YELLW/STRAW); URINE LEUKOCYTE ESTERASE NEG (NEG)
[2017-07-23] MEDS: SODIUM CHLORIDE 0.9% FLUSH 10 ML FLUSH IV FLUSH SCH ×2 (08:02→21:00)
--- NOTE | 2017-07-23 09:06 | HHI.PR ---
Review/Management Diagnosis/Plan: (1) A-fib ICD Codes: I48.91 - A-fib Status: Chronic Plan: rvr with resp distress per medical/ccm (2) Acute ischemic left MCA stroke ICD Codes: I63.512 - Cerebral infarction due to unspecified occlusion or stenosis of left middle cerebral artery Status: Acute Plan: rt ue>le paresis with expressive aphasia mri brain reviewed. official report pending. + left mca subcortical stroke failed eliquis if he was taking it daily likely cardioembolic recs go back to coumadin unless contraindication. start low dose and gradually titrate for inr 2-2.5 aspirin rectally/ng for now f/u echo d/w pt's spouse this am (3) HTN (hypertension) ICD Codes: I10 - HTN (hypertension) Status: Chronic (4) DM (diabetes mellitus) ICD Codes: E11.9 - DM (diabetes mellitus) Status: Chronic Subjective Subjective Comments tx'd to icu and intubated for resp distress Active Medications Current Medications Medications (Trade) Dose Ordered Sig/Jun Route Start Time Stop Time Status Last Admin (NS Flush) 2 ml UNSCH PRN IV FLUSH 07/21/17 13:30 (NS Flush) 2 ml BID IV FLUSH 07/21/17 21:00 07/22/17 21:18 (Tylenol) 650 mg Q4H PRN PO 07/21/17 13:30 Future Hold (Zofran Inj) 4 mg Q6H PRN IVP 07/21/17 13:30 (Narcan Inj) 0.4 mg UNSCH PRN IV PUSH 07/21/17 13:30 (Milk Of Magnesia Liq) 30 ml Q12H PRN PO 07/21/17 13:30 Future Hold (Lipitor) 10 mg HS PO 07/21/17 21:00 Future Hold (Wellbutrin Sr) 150 mg DAILY PO 07/22/17 09:00 Future Hold 07/22/17 10:45 (Namenda) 10 mg DAILY PO 07/22/17 09:00 Future Hold 07/22/17 10:45 (Pill Splitter) 1 ea UNSCH PRN OTHER 07/21/17 14:00 (Vasotec Inj) 1.25 mg Q6H PRN IV PUSH 07/21/17 21:15 (Eliquis) 5 mg BID PO 07/22/17 11:00 Future Hold Sodium Chloride 1,000 ml @ 50 mls/hr Q20H IV 07/22/17 14:45 07/23/17 05:19 (Levsin) 0.25 mg Q4H PRN PO 07/22/17 16:45 (Ativan Inj) 0.5 mg Q8H PRN IV 07/22/17 20:30 07/22/17 21:14 (Peridex 0.12% Liq) 15 ml BID@08,20 MT 07/23/17 08:00 07/23/17 05:18 Propofol 100 ml @ 2.55 mls/hr TITRATE PRN IV 07/23/17 04:45 07/23/17 05:19 (Heparin Inj) 5,000 units Q8HR SQ 07/23/17 06:00 07/23/17 05:11 (Pepcid Inj) 20 mg Q12H IV PUSH 07/23/17 05:00 07/23/17 05:11 Allergies Allergies Coded Allergies No Known Allergies (Verified Allergy, Unknown, 07/21/17) Review of Systems All other ROS: Unable to obtain Exam I&O / VS Vital Signs Date Time Temp Pulse Resp B/P (MAP) Pulse Ox O2 Delivery O2 Flow Rate FiO2 07/23/17 07:00 Mechanical Ventilator 50 07/23/17 06:06 96 50 07/23/17 06:00 116 14 140/60 (86) 97 07/23/17 04:45 99 100 07/23/17 04:35 100 07/23/17 04:30 98.4 132 36 147/76 (99) 99 07/23/17 02:57 97 Non-Rebreather 15.00 07/23/17 02:51 94 Non-Rebreather 15.00 07/23/17 02:45 97 Non-Rebreather 15.00 07/23/17 02:31 98.5 140 30 146/87 (106) 94 07/23/17 01:43 99.2 145 30 142/95 (111) 95 07/23/17 01:35 143 07/23/17 01:34 94 Venturi Mask 3.00 24 07/23/17 01:30 90 Venturi Mask 21 07/23/17 01:29 99.5 129 30 164/79 (107) 94 07/23/17 01:12 99.6 150 24 126/77 (93) 94 07/23/17 01:03 156 07/22/17 20:00 124 07/22/17 20:00 98.4 133 20 150/80 (103) 92 07/22/17 16:00 97.8 74 20 132/81 (98) 94 07/22/17 12:00 97.5 78 20 146/87 (106) 93 07/22/17 09:08 93 21 Eye: PERRL, EOMI Respiratory: Non-labored respirations Exam Comments intubated, arousable, not following, eomi, ou 2.5mm sluggish, rt hemiplegia Objective Micro and Labs Laboratory Tests Test 07/23/17 04:58 07/23/17 05:27 07/23/17 05:30 Nasal Screen MRSA (PCR) MRSA NOT DETECTED Blood Gas Puncture Site RT RADIAL Blood Gas Patient Temperature 98.6 Blood Gas HCO3 19 Blood Gas Base Excess -4.8 Blood Gas Oxygen Saturation 98 Arterial Blood pH 7.44 Arterial Blood Partial Pressure CO2 28 Arterial Blood Partial Pressure O2 400 Arterial Blood Oxygen Content 21.0 Arterial Blood Carboxyhemoglobin 1.0 Arterial Blood Methemoglobin 1.1 Blood Gas Hemoglobin 14.6 Oxygen Delivery Device VENTILATOR Blood Gas Ventilator Setting PRVC/ AC Blood Gas Inspired Oxygen 100 Urine Color LIGHT-YELLOW Urine Turbidity CLEAR Urine pH 5.5 Urine Specific [place] 1.015 Urine Protein 30 Urine Glucose (UA) NEG Urine Ketones 10 Urine Occult Blood TRACE Urine Nitrite NEG Urine Bilirubin NEG Urine Urobilinogen LESS THAN 2.0 Urine Leukocyte Esterase NEG Urine RBC 2 Urine WBC LESS THAN 1 Urine Squamous Epithelial Cells <1 Urine Bacteria RARE Urine Hyaline Casts 3 Urine Mucus FEW Microscopic Urinalysis Comment CATH-CULTURE IND Date/Time Source Procedure Growth Status 07/23/17 05:30 Urine Catheterized Urine Urine Culture Pending Received Problem Qualifiers (1) A-fib: Qualified Codes: I48.2 - Chronic atrial fibrillation (2) HTN (hypertension): Qualified Codes: I10 - Essential (primary) hypertension (3) DM (diabetes mellitus): Umang Renteria MD July 23, 2017 09:06
[2017-07-23] MEDS ORDERED: ASPIRIN 300 MG SUPP RECTAL SCH (09:15)
--- NOTE | 2017-07-23 10:24 | PD.CONS ---
Consult Service Palliative Care . Consult Requested By Dr. Chinchilla . Primary Care Physician Jerod Osorio MD . Reason for Consultation a. To assist with evaluation and management of symptoms including: dyspnea, pain. b. To assist medical decision maker(s) with: better understanding of current medical conditions; weighing benefits/burdens of medical treatment options; making medical treatment decisions. . HPI History of Present Illness Mr. Mendoza is an 86 year old male with past medical history of atrial fibrillation on Eliquis, hypertension, dementia, depression, anxiety, prior CVA (2014), osteoarthritis, BPH, chronic kidney disease, diverticulosis, GERD, glaucoma and history of prostate cancer. Patient presented to [facility] emergency department on 07/21/17 with difficulty ambulating and slurred speech that began 5 days prior to presentation. Symptoms improved then his speech became slurred again. Family noticed right sided facial droop. Upon arrival to the emergency department he was non-verbal, though able to nod yes or no to questions. Patient denied any headache, chest pain, shortness of breath, abdominal pain, nausea, or any weakness anywhere. Initial evaluation revealed: * VS: pulse 79, resp 18, BP 136/70, oxygen saturation 98% on room air * WBC 13.4, hemoglobin 13.1, hematocrit 40.4, platelet count 84, neutrophils 69.2% * PT 13.5, INR 1.3, PTT 34 * BUN 28, creatinine 1.67, glucose 95, sodium 143, potassium 4.2, chloride 110, carbon dioxide 25.4, GFR 39 * Total creatine kinase 53, troponin less than 0.02 * Total protein 7.1, albumin 3.8 * Total bilirubin 0.7, alkaline phosphatase 102, AST 10, ALT 17 * EKG-atrial fibrillation with ventricular rate 107 * Carotid ultrasound-hemodynamic profile characteristic of less than 50% stenosis bilaterally * CT head -moderate to severe atrophic changes old infarcts, no acute hemorrhage mass or evidence of acute infarction. * Chest x-ray -no acute disease. Patient was admitted with probable acute CVA. Patient has had persistent right upper extremity paresis with expressive aphasia. Concern for possible aspiration. Neurology, Dr. Renteria was consulted with recommendation for echocardiogram, transition from Eliquis back to Coumadin. Patient is not a candidate for TPA. Additional testing on 07/22/17: * MRA head -absent flow in the right A1 segment and reconstitution of flow in the A2 segment via patent anterior communicating artery * MRI brain-acute nonhemorrhagic infarct in the left periventricular jones radiata, diffuse severe ischemic white matter change throughout the supratentorial brain and moderate central subcortical atrophy. Overnight patient developed uncontrolled rapid atrial fibrillation with RVR and respiratory distress. Family was considering CODE STATUS, elected to proceed with intubation. Patient was emergently intubated placed on mechanical ventilation and transferred to ICU. Function/Cognitive Trajectory Patient attends adult daycare 2 days per week. Prior to admission patient was able to ambulate with a walker, dress and feed himself. He was not able to drive, grocery shop or prepare meals. His and daughter assist with his care needs. . Review of Systems ROS Limitations: Intubated, Altered Mental Status (sedated) Constitutional: COMPLAINS OF: Fatigue, Change in appetite, Generalized weakness Endocrine: DENIES: Heat/cold intolerance, Polydipsia, Polyuria, Polyphagia Eyes: COMPLAINS OF: Blurred vision Ears, nose, mouth, throat: DENIES: Tinnitus, Hearing loss, Vertigo, Nasal discharge, Oral lesions, Throat pain, Hoarseness, Ear Pain, Running Nose, Epistaxis, Sinus Pain, Toothache, Odynophagia Respiratory: COMPLAINS OF: Shortness of breath Cardiovascular: COMPLAINS OF: Dyspnea on Exertion Gastrointestinal: COMPLAINS OF: Difficulty Swallowing, DENIES: Abdominal pain, Black stools, Bloody stools, Constipation, Diarrhea, Nausea, Vomiting, Anorexia , Dyspepsia or heartburn, Excessive gas, Bloating, Vomiting blood Genitourinary: COMPLAINS OF: Urinary frequency, Decreased stream Musculoskeletal: COMPLAINS OF: Joint pain Integumentary: DENIES: Abnormal pigmentation, Nail changes, Pruritus, Rash, Nodules, Tumors, Excessive dryness, Non-healing sores Hematologic/Lymphatics: COMPLAINS OF: Bruising Immunologic/Allergic: DENIES: Eczema, Urticaria Neurologic: COMPLAINS OF: Abnormal gait, Headache, Localized weakness (right side), Poor Balance (frequent falls) Psychiatric: COMPLAINS OF: Anxiety, Depression Other ROS: ROS per family report Past Family Social History Coded Allergies: No Known Allergies (Verified Allergy, Unknown, 07/21/17) Past Medical History prior CVA 11/2014: acute cva in jones radiata and would appear to be small vessel dz type ischemic cva Hypertension. Dementia with Memory Loss Atrial fibrillation (Dr. Tank Ibarra, switched from Coumadin to Eliquis about 1 month ago) Gout, left great toe (Podiatry, Dr. Aj) Depression with anxiety Osteoarthritis BPH Chronic kidney disease Diverticulosis GERD Glaucoma History of elevated PSA. . Past Surgical History Back surgery, unspecified Needle biopsy the prostate Bilateral cataract surgery Ablation for atrial fibrillation Colonoscopy in 2007 showing diverticulosis EGD in 2004 showing hiatal hernia, esophageal christian, and gastritis Right total knee arthroplasty Heart catheterization . Reported Medications Reported Meds & Active Scripts Active Reported Eliquis (Apixaban) 5 Mg Tab 5 Mg PO BID Xanax (Alprazolam) 0.25 Mg Tab 0.25 Mg PO Q6H PRN Vitamin D3 (Cholecalciferol) 1,000 Unit Tab 1,000 Units PO DAILY Vitamin B-12 (Cyanocobalamin) 500 Mcg Tab 500 Mcg PO DAILY Atorvastatin (Atorvastatin Calcium) 10 Mg Tab 10 Mg PO HS Digoxin 0.125 Mg Tab 0.5 Tab PO DAILY Omeprazole 20 Mg Tab 20 Mg PO DAILY Bupropion HCl ER 24 HR (Bupropion HCl) 150 Mg Tab 150 Mg PO DAILY Namenda (Memantine) 10 Mg Tab 10 Mg PO DAILY Lasix (Furosemide) 20 Mg Tab 20 Mg PO DAILY . Current Medications Medications (Trade) Dose Ordered Sig/Jun Route Start Time Stop Time Status Last Admin (NS Flush) 2 ml UNSCH PRN IV FLUSH 07/21/17 13:30 (NS Flush) 2 ml BID IV FLUSH 07/21/17 21:00 07/22/17 21:18 (Tylenol) 650 mg Q4H PRN PO 07/21/17 13:30 Future Hold (Zofran Inj) 4 mg Q6H PRN IVP 07/21/17 13:30 (Narcan Inj) 0.4 mg UNSCH PRN IV PUSH 07/21/17 13:30 (Milk Of Magnesia Liq) 30 ml Q12H PRN PO 07/21/17 13:30 Future Hold (Lipitor) 10 mg HS PO 07/21/17 21:00 Future Hold (Wellbutrin Sr) 150 mg DAILY PO 07/22/17 09:00 Future Hold 07/22/17 10:45 (Namenda) 10 mg DAILY PO 07/22/17 09:00 Future Hold 07/22/17 10:45 (Pill Splitter) 1 ea UNSCH PRN OTHER 07/21/17 14:00 (Vasotec Inj) 1.25 mg Q6H PRN IV PUSH 07/21/17 21:15 (Eliquis) 5 mg BID PO 07/22/17 11:00 Future Hold Sodium Chloride 1,000 ml @ 50 mls/hr Q20H IV 07/22/17 14:45 07/23/17 05:19 (Levsin) 0.25 mg Q4H PRN PO 07/22/17 16:45 (Ativan Inj) 0.5 mg Q8H PRN IV 07/22/17 20:30 07/22/17 21:14 (Peridex 0.12% Liq) 15 ml BID@08,20 MT 07/23/17 08:00 07/23/17 05:18 Propofol 100 ml @ 2.55 mls/hr TITRATE PRN IV 07/23/17 04:45 07/23/17 05:19 (Heparin Inj) 5,000 units Q8HR SQ 07/23/17 06:00 07/23/17 05:11 (Pepcid Inj) 20 mg Q12H IV PUSH 07/23/17 05:00 07/23/17 05:11 (Aspirin Supp) 300 mg DAILY RECTAL 07/23/17 09:15 Family History Son with history of cancer. Daughter with PVD. . Substance Use Tobacco: Former smoker. Alcohol: None. Prescription med abuse: None. Illicits: None. . Psychosocial History for 65 years to [place]. Was in the . Has 1 daughter (Lilly ) and 2 sons (Roberto and Ernesto). Retired. . Spiritual/Cultural Factors Adventism daniel . Living Will: Completed, but not made available Health Care Surrogate: Completed, but not made available Health Care Surrogate(s): Patient is not capacitated to make his own healthcare decisions, will not regain capacity given dementia and new ischemic stroke. . 3 adult children. Has written advanced directives, reportedly daughter Radha Ayers is designated healthcare surrogate. Copies requested. . Today's verbally stated goals: Patient is not capacitated to make his own healthcare decisions, will not regain capacity given dementia and new ischemic stroke. . Family/friends goals: FULL CODE, family considering CODE STATUS decisions. Goals remain aggressive at this time. All family clear that if patient is medically extubated they would not want reintubation, would transition to comfort focused care should the patient develop cardiac or respiratory distress. Patient would not want trach or PEG. Ethical and Legal Issues Patient is not capacitated to make his own healthcare decisions, will not regain capacity given dementia and new ischemic stroke. . 3 adult children. Has written advanced directives, reportedly daughter Radha Ayers is designated healthcare surrogate. Copies requested. . Physical Exam Vital Signs Date Time Temp Pulse Resp B/P (MAP) Pulse Ox O2 Delivery O2 Flow Rate FiO2 07/23/17 08:47 97 50 07/23/17 08:00 121 07/23/17 07:00 Mechanical Ventilator 50 07/23/17 06:06 96 50 07/23/17 06:00 116 14 140/60 (86) 97 07/23/17 04:45 99 100 07/23/17 04:35 100 07/23/17 04:30 98.4 132 36 147/76 (99) 99 07/23/17 02:57 97 Non-Rebreather 15.00 07/23/17 02:51 94 Non-Rebreather 15.00 07/23/17 02:45 97 Non-Rebreather 15.00 07/23/17 02:31 98.5 140 30 146/87 (106) 94 07/23/17 01:43 99.2 145 30 142/95 (111) 95 07/23/17 01:35 143 07/23/17 01:34 94 Venturi Mask 3.00 24 07/23/17 01:30 90 Venturi Mask 21 07/23/17 01:29 99.5 129 30 164/79 (107) 94 07/23/17 01:12 99.6 150 24 126/77 (93) 94 07/23/17 01:03 156 07/22/17 20:00 124 07/22/17 20:00 98.4 133 20 150/80 (103) 92 07/22/17 16:00 97.8 74 20 132/81 (98) 94 07/22/17 12:00 97.5 78 20 146/87 (106) 93 Exam CONSTITUTIONAL/GENERAL: This is an elderly, thin male, in no apparent distress. TUBES/LINES/DRAINS: ETT, OG, PIV, Stack, SCDs. SKIN: No jaundice, rashes, or lesions. Ecchymoses on upper extremities. No wounds seen anteriorly. Skin temperature appropriate. Not diaphoretic. HEAD: Atraumatic. Normocephalic. EYES: Pupils equal and round, sluggish. ENT: Unable to assess hearing. Nose without bleeding or purulent drainage. Throat difficult to visualize due to tubes. NECK: Trachea midline. CARDIOVASCULAR: Tachycardic. Irregular. No JVD. RESPIRATORY/CHEST: On mech vent. Diminished breath sounds. GASTROINTESTINAL: Abdomen soft, nondistended. No guarding. Bowel sounds present. GENITOURINARY: Without palpable bladder distension. Stack catheter in place. MUSCULOSKELETAL: Extremities without clubbing, cyanosis, or edema. No mottling or clubbing. LYMPHATICS: No palpable cervical or supraclavicular adenopathy. NEUROLOGICAL: Sedated. PSYCHIATRIC: Sedated. . Diagnostic Tests Laboratory Laboratory Tests Test 07/21/17 11:30 07/21/17 18:40 07/22/17 05:49 07/23/17 04:58 White Blood Count 13.4 TH/MM3 (4.0-11.0) 14.2 TH/MM3 (4.0-11.0) Red Blood Count 4.96 MIL/MM3 (4.50-5.90) 4.86 MIL/MM3 (4.50-5.90) Hemoglobin 13.1 GM/DL (13.0-17.0) 13.0 GM/DL (13.0-17.0) Hematocrit 40.4 % (39.0-51.0) 39.7 % (39.0-51.0) Mean Corpuscular Volume 81.5 FL (80.0-100.0) 81.6 FL (80.0-100.0) Mean Corpuscular Hemoglobin 26.5 PG (27.0-34.0) 26.8 PG (27.0-34.0) Mean Corpuscular Hemoglobin Concent 32.5 % (32.0-36.0) 32.8 % (32.0-36.0) Red Cell Distribution Width 16.1 % (11.6-17.2) 15.8 % (11.6-17.2) Platelet Count 84 TH/MM3 (150-450) 81 TH/MM3 (150-450) Mean Platelet Volume 9.9 FL (7.0-11.0) 10.7 FL (7.0-11.0) Neutrophils (%) (Auto) 69.2 % (16.0-70.0) 64.4 % (16.0-70.0) Lymphocytes (%) (Auto) 12.7 % (9.0-44.0) 13.8 % (9.0-44.0) Monocytes (%) (Auto) 17.7 % (0.0-8.0) 21.5 % (0.0-8.0) Eosinophils (%) (Auto) 0.1 % (0.0-4.0) 0.1 % (0.0-4.0) Basophils (%) (Auto) 0.3 % (0.0-2.0) 0.2 % (0.0-2.0) Neutrophils # (Auto) 9.3 TH/MM3 (1.8-7.7) 9.2 TH/MM3 (1.8-7.7) Lymphocytes # (Auto) 1.7 TH/MM3 (1.0-4.8) 2.0 TH/MM3 (1.0-4.8) Monocytes # (Auto) 2.4 TH/MM3 (0-0.9) 3.1 TH/MM3 (0-0.9) Eosinophils # (Auto) 0.0 TH/MM3 (0-0.4) 0.0 TH/MM3 (0-0.4) Basophils # (Auto) 0.0 TH/MM3 (0-0.2) 0.0 TH/MM3 (0-0.2) CBC Comment AUTO DIFF AUTO DIFF Differential Total Cells Counted 100 Neutrophils % (Manual) 76 % (16-70) Band Neutrophils % 3 % (0-6) Lymphocytes % 7 % (9-44) Monocytes % 14 % (0-8) Neutrophils # (Manual) 10.6 TH/MM3 (1.8-7.7) Differential Comment FINAL DIFF MANUAL AUTO DIFF CONFIRMED Platelet Estimate LOW (NORMAL) LOW (NORMAL) Platelet Morphology Comment NORMAL (NORMAL) ENLARGED (NORMAL) Ovalocytes 1+ (NORMAL) 1+ (NORMAL) Prothrombin Time 13.5 SEC (9.8-11.6) Prothromb Time International Ratio 1.3 RATIO Activated Partial Thromboplast Time 34.0 SEC (24.3-30.1) Blood Urea Nitrogen 28 MG/DL (7-18) 21 MG/DL (7-18) Creatinine 1.67 MG/DL (0.60-1.30) 1.34 MG/DL (0.60-1.30) Random Glucose 95 MG/DL (74-106) 81 MG/DL (74-106) Total Protein 7.1 GM/DL (6.4-8.2) Albumin 3.8 GM/DL (3.4-5.0) Calcium Level 9.1 MG/DL (8.5-10.1) 8.8 MG/DL (8.5-10.1) Alkaline Phosphatase 102 U/L (45-117) Aspartate Amino Transf (AST/SGOT) 10 U/L (15-37) Alanine Aminotransferase (ALT/SGPT) 17 U/L (12-78) Total Bilirubin 0.7 MG/DL (0.2-1.0) Sodium Level 143 MEQ/L (136-145) 144 MEQ/L (136-145) Potassium Level 4.2 MEQ/L (3.5-5.1) 3.9 MEQ/L (3.5-5.1) Chloride Level 110 MEQ/L (98-107) 111 MEQ/L (98-107) Carbon Dioxide Level 25.4 MEQ/L (21.0-32.0) 22.9 MEQ/L (21.0-32.0) Anion Gap 8 MEQ/L (5-15) 10 MEQ/L (5-15) Estimat Glomerular Filtration Rate 39 ML/MIN (>89) 51 ML/MIN (>89) Total Creatine Kinase 53 U/L (39-308) Troponin I LESS THAN 0.02 NG/ML Urine Color YELLOW (YELLW/STRAW) Urine Turbidity CLEAR (CLEAR) Urine pH 5.5 (5.0-8.5) Urine Specific [address] 1.013 (1.002-1.035) Urine Protein TRACE mg/dL (NEG-TRACE) Urine Glucose (UA) NEG mg/dL (NEG) Urine Ketones NEG mg/dL (NEG) Urine Occult Blood NEG (NEG) Urine Nitrite NEG (NEG) Urine Bilirubin NEG (NEG) Urine Urobilinogen LESS THAN 2.0 MG/DL (LESS Urine Leukocyte Esterase NEG (NEG) Urine RBC 2 /hpf (0-3) Urine Mucus FEW /lpf (OCC) Microscopic Urinalysis Comment CATH-CULT NOT IND Acanthocytes OCC (NORMAL) Triglycerides Level 75 MG/DL (42-150) Cholesterol Level 93 MG/DL (120-200) LDL Cholesterol 33 MG/DL (0-99) HDL Cholesterol 45.1 MG/DL (40.0-60.0) Cholesterol/HDL Ratio 2.06 RATIO Nasal Screen MRSA (PCR) MRSA NOT DETECTED (NOT Test 07/23/17 05:27 07/23/17 05:30 Blood Gas Puncture Site RT RADIAL Blood Gas Patient Temperature 98.6 Blood Gas HCO3 19 mmol/L (22-26) Blood Gas Base Excess -4.8 mmol/L (-2-2) Blood Gas Oxygen Saturation 98 % (90-100) Arterial Blood pH 7.44 (7.380-7.420) Arterial Blood Partial Pressure CO2 28 mmHg (38-42) Arterial Blood Partial Pressure O2 400 mmHg (61-120) Arterial Blood Oxygen Content 21.0 Vol % (12.0-20.0) Arterial Blood Carboxyhemoglobin 1.0 % (0-4) Arterial Blood Methemoglobin 1.1 % (0-2) Blood Gas Hemoglobin 14.6 G/DL (12.0-16.0) Oxygen Delivery Device VENTILATOR Blood Gas Ventilator Setting PRVC/ AC Blood Gas Inspired Oxygen 100 % Urine Color LIGHT-YELLOW (YELLW/STRAW) Urine Turbidity CLEAR (CLEAR) Urine pH 5.5 (5.0-8.5) Urine Specific [address] 1.015 (1.002-1.035) Urine Protein 30 mg/dL (NEG-TRACE) Urine Glucose (UA) NEG mg/dL (NEG) Urine Ketones 10 mg/dL (NEG) Urine Occult Blood TRACE (NEG) Urine Nitrite NEG (NEG) Urine Bilirubin NEG (NEG) Urine Urobilinogen LESS THAN 2.0 MG/DL (LESS Urine Leukocyte Esterase NEG (NEG) Urine RBC 2 /hpf (0-3) Urine WBC LESS THAN 1 /hpf (0-5) Urine Squamous Epithelial Cells <1 /hpf (0-5) Urine Bacteria RARE /hpf (NONE) Urine Hyaline Casts 3 /lpf (RARE) Urine Mucus FEW /lpf (OCC) Microscopic Urinalysis Comment CATH-CULTURE IND Result Diagram: 07/22/17 0549 07/22/17 0549 Microbiology Microbiology Date/Time Source Procedure Growth Status 07/23/17 05:30 Urine Catheterized Urine Urine Culture Pending Received Imaging Last Impressions Chest X-Ray 07/23/17 0000 Signed Impressions: Service Date/Time: Sunday, July 23, 2017 04:44 - CONCLUSION: 1. Lungs are clear. 2. Nasogastric tube with the side port above the GE junction. This should probably be advanced a few centimeters. Reji Gomez MD Head Magnetic Resonance Angiography 07/22/17 0000 Signed Impressions: Service Date/Time: Saturday, July 22, 2017 14:59 - CONCLUSION: 1. Absent flow in the right A1 segment and reconstitution of flow in the A2 segment via a patent anterior communicating artery. Smith Hilario MD Brain MRI 07/22/17 0000 Signed Impressions: Service Date/Time: Saturday, July 22, 2017 14:59 - CONCLUSION: 1. Acute nonhemorrhagic infarct in the left periventricular jones radiata. 2. Diffuse severe ischemic white matter change throughout the supratentorial brain and moderate central subcortical atrophy. Smith Hilario MD Head CT 07/21/17 1122 Signed Impressions: Service Date/Time: Friday, July 21, 2017 11:55 - CONCLUSION: 1. Moderate to severe atrophic changes old infarcts. 2. No acute hemorrhage, mass or evidence of acute infarction. Eliazar Pimentel MD Carotid Artery Ultrasound 07/21/17 0000 Signed Impressions: Service Date/Time: Friday, July 21, 2017 13:41 - CONCLUSION: Hemodynamic profile is characteristic of less than 50%% stenosis bilaterally. Smith Hilario MD . Procedures * 07/23/17 -intubated . Patient/Family Conference Present at Family Conference: Met with (Sherley), daughter (Lilly) and 2 sons, 2 grandchildren. Family Conference Time (mins): 90 Family Conference Location: Consult Room Issues Discussed: * Palliative care role, purpose, approach * Additional medical, psychosocial, and spiritual history * Patients general health, functional status, and cognitive changes in the months leading up to the current hospitalization * Patient/family understanding of the current medical problems * Patient/family understanding of prognosis * Patients goals of care as best understood from advance directives and/or conversations and/or values * Current medical treatment options and benefits/burdens of those options * Likely scenarios comparing ongoing aggressive care with a transition to comfort measures only * Questions answered to the best of my ability * Palliative care contact information provided Family seems to have a good understanding of current medical condition. All family verbalize his wishes for NO CODE or life prolonging measures or procedures if unable to be weaned from vent, no trach or PEG. is not yet ready to support a decision for NO CODE, she wants him to live as "long as he can." While his daughter, Lilly is the designated health care surrogate the family is hoping she will come around. They understand patient will remain a FULL CODE based on their wishes. I have encouraged them to read his written advanced directives and to bring a copy to the hospital - family will bring copies later today. Reviewed likely progression of dementia, the difficulty in rehab potential in someone with underlying dementia, the continued risk of aspiration, the possibility of bleeds with his frequent falls with anticoagulation. I explained patient may never return home to the level of functioning he had previously, may require longterm. Family does not find he would find this quality of life acceptable. Family reports significant, rapid decline in over the past 4 months or so. Family will continue to talk and let palliative care know if they wish to change code status. Assessment and Plan Disease Oriented Problem List: (1) Dementia (2) CKD (chronic kidney disease) stage 3, GFR 30-59 ml/min (3) Depression with anxiety (4) A-fib (5) CVA (cerebral vascular accident) (6) BPH (benign prostatic hyperplasia) (7) DM (diabetes mellitus) (8) HTN (hypertension) (9) Acute ischemic left MCA stroke Symptom Scale: (1) Dyspnea 0-10 Scale: Unable to quantify Comment: on mech vent (2) Pain 0-10 Scale: Unable to quantify Comment: sedated on vent, no obvious pain. Pertinent Non-Medical Issues Psychosocial: . 2 sons and 1 daughter. Spiritual: Adventism daniel. Legal:Patient is not capacitated to make his own healthcare decisions, will not regain capacity given dementia and new ischemic stroke. . 3 adult children. Has written advanced directives, reportedly daughter Radha Ayers is designated healthcare surrogate. Copies requested. Ethical issues impacting care: Non known concerns at this time. . Important Contacts * Lilly Mendoza, daughter/ [facility]; [phone] * Sherley Mendoza, ; [phone] or [phone] . Prognosis Mr. Mendoza is an 86 year old male with dementia (not end stage) with progressive cognitive and functional decline. He was admitted with new left ischemic stroke. History of A. Fib. on Eliquis. He was likely aspirating and developed respiratory distress and was emergently intubated. Given his ongoing trajectory of decline he is high risk for further decline. While he may survive this admission he has poor rehab potential given recent decline, dementia and new ischemic stroke. . Code Status: Full Code Plan * Patient is not capacitated to make his own healthcare decisions, will not regain capacity given dementia and new ischemic stroke. . 3 adult children. Has written advanced directives, reportedly daughter Radha Ayers is designated healthcare surrogate. Copies requested. * FULL CODE-family considering alternate CODE STATUS, not yet ready to make this decision as patient's is struggling with consideration of DNR. * Family meeting 07/23/17: Family seems to have a good understanding of current medical condition. All family verbalize his wishes for NO CODE or life prolonging measures or procedures if unable to be weaned from vent, no trach or PEG. is not yet ready to support a decision for NO CODE, she wants him to live as "long as he can." While his daughter, Lilly is the designated health care surrogate the family is hoping she will come around. They understand patient will remain a FULL CODE based on their wishes. I have encouraged them to read his written advanced directives and to bring a copy to the hospital - family will bring copies later today. Reviewed likely progression of dementia, the difficulty in rehab potential in someone with underlying dementia, the continued risk of aspiration, the possibility of bleeds with his frequent falls with anticoagulation. I explained patient may never return home to the level of functioning he had previously, may require longterm. Family does not find he would find this quality of life acceptable. Family reports significant, rapid decline in over the past 4 months or so. Family will continue to talk and let palliative care know if they wish to change code status. * SYMPTOMS: Dyspnea: On mechanical ventilation. Will attempt weaning trials in the coming days. Family indicates if patient is medically extubated they would not want reintubation and will transition to comfort measures if he fails. Pain : Sedated, no obvious signs of pain during this visit. We will continue to monitor. * Palliative care number provided. * Palliative care will continue to follow to assist with symptom management further clarification of medical treatment goals throughout hospital course. . Thank you for the opportunity to participate in the care of Mr. Mendoza. Attestation To help prompt me to consider important information that might be impacting today's encounter and assessment, information from prior notes written by myself or my colleagues may have been "brought forward" into today's note. My signature on this note, however, is an attestation that I personally performed the exam, history, and/or decision-making noted today, and, unless otherwise indicated, the interactions with patient, family, and staff as well as the review of records all occurred today. I also attest that the listed assessment and stated plan reflect my best clinical judgment today based on the combination of historical information, prior notes, and today's exam/ interactions. When time spent is documented, it refers only to time spent today by the signer, or if indicated, combined time spent today by collaborating physician/nurse practitioner. Lesly Manzano July 23, 2017 10:24
[2017-07-23] MEDS ORDERED: DILTIAZEM HCL 25 MG/5 ML VIAL IV ONE (10:30)
[2017-07-23] MEDS: ASPIRIN 325 MG TAB OG-TUBE SCH (10:30)
--- NOTE | 2017-07-23 10:33 | EKG ---
Date Performed: 07/23/2017 Time Performed: 01:27:20 PTAGE: 86 years EKG: Multifocal atrial tachycardia Ventricular premature complex Nonspecific ST abnormalities Edwar rderline ECG PREVIOUS TRACING : 07/21/2017 11.30 Chaotic atrial rhythm is new from the old tracing. DOCTOR: Rufino Monroe Interpretating Date/Time 07/23/2017 10:33:00
[2017-07-23] MEDS ORDERED: DILTIAZEM HCL 25 MG/5 ML VIAL ONE (10:49)
[2017-07-23] MEDS: DILTIAZEM HCL 30 MG TAB OG-TUBE SCH ×3 (10:52→23:00)
[2017-07-23] MEDS ORDERED: ENOXAPARIN SODIUM 120 MG/0.8 ML SYRINGE SQ SCH (12:00)
[2017-07-23] MEDS ORDERED: SODIUM CHLOR 0.9% 1000 ML INJ 1,000 ML IV ONE (13:43)
[2017-07-23 15:43] LABS: HEMATOCRIT 39.8 % (39.0-51.0); HEMOGLOBIN 12.8 GM/DL (13.0-17.0); MEAN CELL VOLUME 83.1 FL (80.0-100.0); MEAN CORPUSCULAR HEMOGLOBIN 26.7 PG (27.0-34.0); MEAN CORPUSCULAR HGB CONC 32.1 % (32.0-36.0); PLATELET COUNT 89 TH/MM3 (150-450); RED BLOOD COUNT 4.79 MIL/MM3 (4.50-5.90); RED CELL DISTRIBUTION WIDTH 16.2 % (11.6-17.2); WHITE BLOOD COUNT 29.4 TH/MM3 (4.0-11.0)
[2017-07-23 15:54] LABS: BICARBONATE 17.1 MEQ/L (21.0-32.0); CALCIUM 8.4 MG/DL (8.5-10.1); CREATININE 2.44 MG/DL (0.60-1.30)
--- NOTE | 2017-07-23 16:45 | ECHRPT ---
Indication: cva/tia CONCLUSIONS Normal left ventricular size. Mild concentric left ventricular hypertrophy. The left ventricular systolic function is hyperdynamic with an estimated ejection fraction in the ra nge of 65- 70%. Mitral annular calcification is present. Trace mitral valve regurgitation. Mild to moderate aortic valve stenosis. Aortic valve mean gradient is 25 mmHg. thickening of the aortic valve leaflets. mild mitral stenosis, mean gradient = 6 mm hg BP: / HR: Rhythm: MEASUREMENTS (Male / Female) Normal Values Technical Quality: 2D ECHO LV Diastolic Diameter PLAX 3.7 cm 4.2 - 5.9 / 3.9 - 5.3 cm LV Systolic Diameter PLAX 2.4 cm IVS Diastolic Thickness 1.2 cm 0.6 - 1.0 / 0.6 - 0.9 cm LVPW Diastolic Thickness 0.6 cm 0.6 - 1.0 / 0.6 - 0.9 cm LV Relative Wall Thickness 0.5 DOPPLER AV Peak Velocity 306.8 cm/s AV Peak Gradient 37.7 mmHg AV Mean Gradient 18.8 mmHg AV Velocity Time Integral 47.9 cm LVOT Peak Velocity 65.3 cm/s LVOT Peak Gradient 1.7 mmHg LVOT Velocity Time Integral 12.1 cm MV Peak Velocity 140.0 cm/s MV Peak Gradient 7.8 mmHg MV Mean Velocity 101.1 cm/s MV Mean Gradient 4.5 mmHg MV Area PHT 5.5 cm Mitral E Point Velocity 83.3 cm/s Mitral A Point Velocity 106.0 cm/s Mitral E to A Ratio 0.8 TR Peak Velocity 314.0 cm/s TR Peak Gradient 39.4 mmHg Right Atrial Pressure 10.0 mmHg Pulmonary Artery Systolic Pressu 49.4 mmHg Right Ventricular Systolic Press 49.4 mmHg FINDINGS LEFT VENTRICLE Normal left ventricular size. Mild concentric left ventricular hypertrophy. The left ventricular systolic function is hyperdynamic with an estimated ejection fraction in the ra nge of 65- 70%. RIGHT VENTRICLE Normal right ventricular size and systolic function. LEFT ATRIUM The left atrial size is normal. RIGHT ATRIUM The right atrial size is normal. ATRIAL SEPTUM Normal atrial septal thickness without atrial level shunting by limited color doppler interrogation. AORTA The aortic root and proximal ascending aorta are normal in size on limited imaging. MITRAL VALVE Mitral annular calcification is present. Trace mitral valve regurgitation. AORTIC VALVE Mild aortic valve stenosis. Aortic valve mean gradient is 25 mmHg. thickening of the aortic valve leaflets. TRICUSPID VALVE Structurally normal tricuspid valve. No tricuspid valve stenosis or regurgitation. PULMONARY VALVE No pulmonary valve regurgitation or stenosis. VESSELS The inferior vena cava is normal in size. PERICARDIUM No pericardial effusion. Star Delvalle MD, FACC, [facility] (Electronically Signed) Final Date:23 Jul 2017 16:44
--- NOTE | 2017-07-23 19:28 | RADRPT ---
EXAM DATE/TIME: 07/23/2017 17:55 [place] COMPARISON: No previous studies available for comparison. INDICATIONS : Increased BUN/Creatinine. MEDICAL HISTORY : Myocardial infarction. Hypercholesterolemia. Stroke. Atrial fibrillation. Renal disease. Gout. Hypert ension. BPH. Diverticulosis. SURGICAL HISTORY : Cholecystectomy. Cardiac catheterization. Back surgery. Cardiac ablation. Prostate biopsy. ENCOUNTER: Initial ACUITY: 3 days PAIN SCORE: 2/10 LOCATION: Bilateral flank MEASUREMENTS: RIGHT KIDNEY: 12.6 x 6.1 x 6.2 cm LEFT KIDNEY: 11.4 x 6.3 x 5.6 cm FINDINGS: RIGHT KIDNEY: Renal cortex is normal in thickness and increased echotexture. No hydronephrosis, stone, or mass. M ultiple benign-appearing cysts including one in the lower pole measuring 37 x 39 x 45 mm. 2 are seen within the mid kidney measuring 73 x 60 x 62 mm and 62 x 64 x 51 mm. Multiple other cysts. LEFT KIDNEY: Renal cortex is normal in thickness and increased echotexture. No hydronephrosis, stone, or mass. M ultiple benign-appearing cysts including one in the lower pole measuring 60 x 59 x 57 mm. 2 in the up per pole measuring 31 x 30 x 34 mm and 60 x 61 x 60 mm. Multiple other cysts are seen. BLADDER: Within normal limits given the degree of distension. CONCLUSION: 1. Echogenic kidneys which can be seen with medical renal disease. 2. Bilateral renal cysts. Connor Braxton MD on July 23, 2017 at 19:25 Board Certified Radiologist. This report was verified electronically.
[2017-07-24] VITALS (19 sets, daily range): BP systolic 90–151; BP diastolic 51–96; PULSE 87–142; RESP 26–31; TEMP 99.1–102; O2SAT 93–97
[2017-07-24] MEDS: DILTIAZEM HCL 30 MG TAB OG-TUBE SCH ×2 (05:00→09:55)
[2017-07-24] MEDS: FAMOTIDINE 20 MG/2 ML VIAL IV PUSH SCH ×2 (05:00→17:12)
[2017-07-24] MEDS: SODIUM CHLOR 0.9% 1000 ML INJ 1,000 ML IV SCH ×2 (05:51→11:31)
--- NOTE | 2017-07-24 08:48 | HHI.PR ---
Review/Management Diagnosis/Plan: (1) Acute ischemic left MCA stroke ICD Codes: I63.512 - Cerebral infarction due to unspecified occlusion or stenosis of left middle cerebral artery Status: Acute Plan: rt ue>le paresis with expressive aphasia mri brain reviewed. official report pending. + left mca subcortical stroke failed eliquis if he was taking it daily likely cardioembolic echo- mitral valve calcification; aortic stenosis, ef 60+% recs limited exam f/u ct brain reduce dose of lovenox to 40mgqd to avoid ICH transformation of stroke afib/resp- main medical issue aspirin for now go back to coumadin unless contraindication. start low dose and gradually titrate for inr 2-2.5 palliative care following d/w pt's spouse, rn (2) A-fib ICD Codes: I48.91 - A-fib Status: Chronic Plan: rvr with resp distress per medical/ccm (3) HTN (hypertension) ICD Codes: I10 - HTN (hypertension) Status: Chronic (4) DM (diabetes mellitus) ICD Codes: E11.9 - DM (diabetes mellitus) Status: Chronic Subjective Subjective Comments No acute events reported Active Medications Current Medications Medications (Trade) Dose Ordered Sig/Jun Route Start Time Stop Time Status Last Admin (NS Flush) 2 ml UNSCH PRN IV FLUSH 07/21/17 13:30 (NS Flush) 2 ml BID IV FLUSH 07/21/17 21:00 07/23/17 21:00 (Tylenol) 650 mg Q4H PRN PO 07/21/17 13:30 Future Hold (Zofran Inj) 4 mg Q6H PRN IVP 07/21/17 13:30 (Narcan Inj) 0.4 mg UNSCH PRN IV PUSH 07/21/17 13:30 (Milk Of Magnesia Liq) 30 ml Q12H PRN PO 07/21/17 13:30 Future Hold (Lipitor) 10 mg HS PO 07/21/17 21:00 Future Hold (Wellbutrin Sr) 150 mg DAILY PO 07/22/17 09:00 Future Hold 07/22/17 10:45 (Namenda) 10 mg DAILY PO 07/22/17 09:00 Future Hold 07/22/17 10:45 (Pill Splitter) 1 ea UNSCH PRN OTHER 07/21/17 14:00 (Vasotec Inj) 1.25 mg Q6H PRN IV PUSH 07/21/17 21:15 (Eliquis) 5 mg BID PO 07/22/17 11:00 Future Hold Sodium Chloride 1,000 ml @ 50 mls/hr Q20H IV 07/22/17 14:45 07/23/17 05:19 (Levsin) 0.25 mg Q4H PRN PO 07/22/17 16:45 (Ativan Inj) 0.5 mg Q8H PRN IV 07/22/17 20:30 07/22/17 21:14 (Peridex 0.12% Liq) 15 ml BID@08,20 MT 07/23/17 08:00 07/23/17 20:00 Propofol 100 ml @ 2.55 mls/hr TITRATE PRN IV 07/23/17 04:45 07/23/17 05:19 (Pepcid Inj) 20 mg Q12H IV PUSH 07/23/17 05:00 07/24/17 05:00 (Cardizem) 30 mg Q6H OG-TUBE 07/23/17 11:00 07/24/17 05:00 (Aspirin) 325 mg DAILY OG-TUBE 07/23/17 10:30 07/23/17 10:30 (Lovenox Inj) 120 mg Q24H SQ 07/23/17 12:00 07/23/17 12:00 Allergies Allergies Coded Allergies No Known Allergies (Verified Allergy, Unknown, 07/21/17) Review of Systems All other ROS: Unable to obtain Exam I&O / VS Vital Signs Date Time Temp Pulse Resp B/P (MAP) Pulse Ox O2 Delivery O2 Flow Rate FiO2 07/24/17 07:47 94 45 07/24/17 07:47 94 Ventilator 45 07/24/17 06:00 110 07/24/17 04:21 95 45 07/24/17 04:00 45 07/24/17 04:00 131 07/24/17 04:00 100.7 134 26 141/57 (85) 93 07/24/17 02:32 95 45 07/24/17 02:00 131 07/24/17 00:00 131 07/24/17 00:00 45 07/24/17 00:00 102.0 142 26 118/67 (84) 93 07/23/17 23:12 93 45 07/23/17 22:00 128 07/23/17 20:20 94 45 07/23/17 20:00 45 07/23/17 20:00 123 07/23/17 20:00 100.3 123 14 116/87 (97) 93 07/23/17 19:00 Mechanical Ventilator 50 07/23/17 18:00 135 07/23/17 16:00 45 07/23/17 16:00 112 07/23/17 16:00 99.4 124 12 115/59 (77) 95 07/23/17 15:46 94 45 07/23/17 14:00 130 07/23/17 12:00 45 07/23/17 12:00 99.5 107 14 126/60 (82) 95 07/23/17 12:00 126 07/23/17 11:37 97 45 07/23/17 10:00 135 07/23/17 08:47 97 50 Eye: PERRL, EOMI Respiratory: Non-labored respirations Exam Comments intubated, on propofol gtt, mildly arousable, partially opens eyes, not following, eomi, ou 2.5mm sluggish, rt hemiplegia Objective Micro and Labs Laboratory Tests Test 07/23/17 10:32 07/23/17 15:23 07/24/17 05:44 Magnesium Level 2.0 White Blood Count 29.4 Red Blood Count 4.79 Hemoglobin 12.8 Hematocrit 39.8 Mean Corpuscular Volume 83.1 Mean Corpuscular Hemoglobin 26.7 Mean Corpuscular Hemoglobin Concent 32.1 Red Cell Distribution Width 16.2 Platelet Count 89 Mean Platelet Volume 10.0 Blood Urea Nitrogen 34 Creatinine 2.44 Random Glucose 112 Calcium Level 8.4 Sodium Level 144 Potassium Level 4.4 Chloride Level 114 Carbon Dioxide Level 17.1 Anion Gap 13 Estimat Glomerular Filtration Rate 25 Digoxin Level 1.1 Date/Time Source Procedure Growth Status 07/23/17 05:30 Urine Catheterized Urine Urine Culture Pending Received Problem Qualifiers (1) A-fib: Qualified Codes: I48.2 - Chronic atrial fibrillation (2) HTN (hypertension): Qualified Codes: I10 - Essential (primary) hypertension (3) DM (diabetes mellitus): Umang Renteria MD July 24, 2017 08:48
[2017-07-24] MEDS: SODIUM CHLORIDE 0.9% FLUSH 10 ML FLUSH IV FLUSH SCH ×2 (09:54→20:12)
[2017-07-24] MEDS: CHLORHEXIDINE 0.12% (ORAL KIT) 15 ML CUP MT SCH ×2 (09:54→20:00)
[2017-07-24] MEDS: ASPIRIN 325 MG TAB OG-TUBE SCH (09:55)
--- NOTE | 2017-07-24 11:57 | PD.CONS ---
[facility] Service Nephrology Consult Requested By Reason for Consult Acute on chronic kidney disease Primary Care Physician Jerod Osorio MD History of Present Illness Mr. Mendoza was admitted on 07/21/17 with slurred speech and difficulty ambulation. Initial CT was negative, but MRI confirmed non hemorrhagic stroke. He developed atrial fibrillation with RVR and respiratory distress and therefore was intubated for airway protection. He appears to have underlying CKD stage III. Renal function has worsened. He is oliguric. Currently on NS. Not on vasopressors. Has a Stack catheter. Review of Systems ROS Limitations: Intubated Past Family Social History Allergies: Coded Allergies: No Known Allergies (Verified Allergy, Unknown, 07/21/17) Past Medical History rior CVA 11/2014: acute cva in [facility] and would appear to be small vessel dz type ischemic cva hypertension. Dementia with Memory Loss atrial fibrillation Patient follows with Dr. Tank Ibarra Switched from Coumadin to Eliquis about 1 month ago gout, left great toe Patient follows with podiatry, Dr. Aj depression with anxiety osteoarthritis BPH chronic kidney disease diverticulosis GERD glaucoma history of prostate cancer Past Surgical History 1) back surgery, unspecified 2) needle biopsy the prostate 3) bilateral cataract surgery 4) A. fib ablation 5) colonoscopy in 2007 showing diverticulosis 6) EGD in 2004 showing hiatal hernia, esophageal christian, and gastritis 7) right total knee arthroplasty 8) heart catheterization Reported Medications Eliquis (Apixaban) 5 Mg Tab 5 Mg PO BID Xanax (Alprazolam) 0.25 Mg Tab 0.25 Mg PO Q6H PRN Vitamin D3 (Cholecalciferol) 1,000 Unit Tab 1,000 Units PO DAILY Vitamin B-12 (Cyanocobalamin) 500 Mcg Tab 500 Mcg PO DAILY Atorvastatin (Atorvastatin Calcium) 10 Mg Tab 10 Mg PO HS Digoxin 0.125 Mg Tab 0.5 Tab PO DAILY Omeprazole 20 Mg Tab 20 Mg PO DAILY Bupropion HCl ER 24 HR (Bupropion HCl) 150 Mg Tab 150 Mg PO DAILY Namenda (Memantine) 10 Mg Tab 10 Mg PO DAILY Lasix (Furosemide) 20 Mg Tab 20 Mg PO DAILY Active Ordered Medications Current Medications Medications (Trade) Dose Ordered Sig/Jun Route Start Time Stop Time Status Last Admin (NS Flush) 2 ml UNSCH PRN IV FLUSH 07/21/17 13:30 (NS Flush) 2 ml BID IV FLUSH 07/21/17 21:00 07/24/17 09:54 (Tylenol) 650 mg Q4H PRN PO 07/21/17 13:30 Future Hold (Zofran Inj) 4 mg Q6H PRN IVP 07/21/17 13:30 (Narcan Inj) 0.4 mg UNSCH PRN IV PUSH 07/21/17 13:30 (Milk Of Magnesia Liq) 30 ml Q12H PRN PO 07/21/17 13:30 Future Hold (Lipitor) 10 mg HS PO 07/21/17 21:00 Future Hold (Wellbutrin Sr) 150 mg DAILY PO 07/22/17 09:00 Future Hold 07/22/17 10:45 (Namenda) 10 mg DAILY PO 07/22/17 09:00 Future Hold 07/22/17 10:45 (Pill Splitter) 1 ea UNSCH PRN OTHER 07/21/17 14:00 (Vasotec Inj) 1.25 mg Q6H PRN IV PUSH 07/21/17 21:15 (Eliquis) 5 mg BID PO 07/22/17 11:00 Future Hold Sodium Chloride 1,000 ml @ 50 mls/hr Q20H IV 07/22/17 14:45 07/24/17 11:31 (Levsin) 0.25 mg Q4H PRN PO 07/22/17 16:45 (Ativan Inj) 0.5 mg Q8H PRN IV 07/22/17 20:30 07/22/17 21:14 (Peridex 0.12% Liq) 15 ml BID@08,20 MT 07/23/17 08:00 07/24/17 09:54 Propofol 100 ml @ 2.55 mls/hr TITRATE PRN IV 07/23/17 04:45 07/23/17 05:19 (Pepcid Inj) 20 mg Q12H IV PUSH 07/23/17 05:00 07/24/17 05:00 (Cardizem) 30 mg Q6H OG-TUBE 07/23/17 11:00 07/24/17 09:55 (Aspirin) 325 mg DAILY OG-TUBE 07/23/17 10:30 07/24/17 09:55 (Lovenox Inj) 40 mg Q24H SQ 07/24/17 12:00 Family History reviewed, non contributory Social History no tobacco or ETOH. Physical Exam Vital Signs Vital Signs Date Time Temp Pulse Resp B/P (MAP) Pulse Ox O2 Delivery O2 Flow Rate FiO2 07/24/17 07:47 94 45 07/24/17 07:47 94 Ventilator 45 07/24/17 06:00 110 07/24/17 04:21 95 45 07/24/17 04:00 45 07/24/17 04:00 131 07/24/17 04:00 100.7 134 26 141/57 (85) 93 07/24/17 02:32 95 45 07/24/17 02:00 131 07/24/17 00:00 131 07/24/17 00:00 45 07/24/17 00:00 102.0 142 26 118/67 (84) 93 07/23/17 23:12 93 45 07/23/17 22:00 128 07/23/17 20:20 94 45 07/23/17 20:00 45 07/23/17 20:00 123 07/23/17 20:00 100.3 123 14 116/87 (97) 93 07/23/17 19:00 Mechanical Ventilator 50 07/23/17 18:00 135 07/23/17 16:00 45 07/23/17 16:00 112 07/23/17 16:00 99.4 124 12 115/59 (77) 95 07/23/17 15:46 94 45 07/23/17 14:00 130 07/23/17 12:00 45 07/23/17 12:00 99.5 107 14 126/60 (82) 95 07/23/17 12:00 126 Physical Exam GENERAL: patient is intubated. Sedated. SKIN: Warm and dry. HEAD: Normocephalic. EYES: No scleral icterus. No injection or drainage. NECK: Supple, trachea midline. No JVD or lymphadenopathy. CARDIOVASCULAR: irregularly irregular. RESPIRATORY: Breath sounds equal bilaterally. Vented breath sounds. GASTROINTESTINAL: Abdomen soft, non-tender, nondistended. MUSCULOSKELETAL: No cyanosis, or edema. Laboratory Laboratory Tests Test 07/23/17 15:23 07/24/17 05:44 White Blood Count 29.4 Red Blood Count 4.79 Hemoglobin 12.8 Hematocrit 39.8 Mean Corpuscular Volume 83.1 Mean Corpuscular Hemoglobin 26.7 Mean Corpuscular Hemoglobin Concent 32.1 Red Cell Distribution Width 16.2 Platelet Count 89 Mean Platelet Volume 10.0 Blood Urea Nitrogen 34 Creatinine 2.44 Random Glucose 112 Calcium Level 8.4 Sodium Level 144 Potassium Level 4.4 Chloride Level 114 Carbon Dioxide Level 17.1 Anion Gap 13 Estimat Glomerular Filtration Rate 25 Digoxin Level 1.1 Date/Time Source Procedure Growth Status 07/23/17 05:30 Urine Catheterized Urine Urine Culture - Preliminary NO GROWTH IN 24 HOURS. Resulted Result Diagram: 07/23/17 1523 07/23/17 1523 Assessment and Plan Problem List: (1) Acute kidney injury ICD Codes: N17.9 - Acute kidney failure, unspecified Plan: likely has underlying nephrosclerosis. [place] could be due to renal hypoperfusion, may have progressed to ATN. He is currently oliguric. I will order a dose of Lasix. Avoid nephrotoxic agents. Renal US: revealed no hydronephrosis, medical renal disease. I had a detailed discussion with patient's daughter. We discussed possible dialysis: patient's daughter does not want us to proceed with dialysis, she understands the consequences of this decision. At this time, I will continue to monitor his urine output and renal function. If urine output does not improve, his prognosis is poor. (2) CVA (cerebral vascular accident) ICD Codes: I63.9 - Cerebral infarction, unspecified Status: Acute Plan: Neurology following. Currently intubated. (3) CKD (chronic kidney disease) stage 3, GFR 30-59 ml/min ICD Codes: N18.3 - CKD (chronic kidney disease) stage 3, GFR 30-59 ml/min Status: Chronic Plan: See above. Likely has nephrosclerosis. (4) HTN (hypertension) ICD Codes: I10 - HTN (hypertension) Status: Chronic Plan: Avoid aggressive control of hypertension. (5) A-fib ICD Codes: I48.91 - A-fib Status: Chronic Plan: About 1.5 months ago Coumadin was switched to Apixaban. The daughter suspects that her father was not taking the medications as prescribed. Assessment and Plan Thanks for the consult. Problem Qualifiers (1) CVA (cerebral vascular accident): Qualified Codes: I63.9 - Cerebral infarction, unspecified (2) HTN (hypertension): Qualified Codes: I10 - Essential (primary) hypertension (3) A-fib: Qualified Codes: I48.2 - Chronic atrial fibrillation Nadeem Carter MD July 24, 2017 11:57
[2017-07-24] MEDS ORDERED: FUROSEMIDE 20 MG/2 ML VIAL IV PUSH ONE (12:00)
[2017-07-24] MEDS ORDERED: ENOXAPARIN SODIUM 40 MG/0.4 ML SYRINGE SQ SCH (12:00)
[2017-07-24] MEDS ORDERED: METOPROLOL TARTRATE 5 MG/5 ML VIAL IV PUSH ONE (13:15)
[2017-07-24 13:39] LABS: AUTOMATED NEUTROPHIL # 23.2 TH/MM3 (1.8-7.7); BASOPHIL # 0.1 TH/MM3 (0-0.2); BASOPHIL % 0.2 % (0.0-2.0); HEMATOCRIT 42.1 % (39.0-51.0); HEMOGLOBIN 13.5 GM/DL (13.0-17.0); LYMPH % 3.3 % (9.0-44.0); MEAN CELL VOLUME 82.5 FL (80.0-100.0); MEAN CORPUSCULAR HEMOGLOBIN 26.4 PG (27.0-34.0); MEAN PLATELET VOLUME 10.3 FL (7.0-11.0); MONO % 22.7 % (0.0-8.0); MONOCYTE # 7.1 TH/MM3 (0-0.9); NEUT % 73.8 % (16.0-70.0); PLATELET COUNT 85 TH/MM3 (150-450); RED BLOOD COUNT 5.11 MIL/MM3 (4.50-5.90); RED CELL DISTRIBUTION WIDTH 16.3 % (11.6-17.2); WHITE BLOOD COUNT 31.5 TH/MM3 (4.0-11.0)
[2017-07-24 14:20] LABS: BANDS 6 % (0-6); LYMPHOCYTES 8 % (9-44); MONOCYTES 11 % (0-8); NEUTROPHIL # MANUAL DIFF 25.5 TH/MM3 (1.8-7.7); POLYS (SEG NEUTROPHILS) 75 % (16-70)
[2017-07-24 14:21] LABS: ALBUMIN 2.7 GM/DL (3.4-5.0); ALKALINE PHOSPHATASE 84 U/L (45-117); ALT (GPT) 26 U/L (12-78); AST (GOT) 34 U/L (15-37); BICARBONATE 19.1 MEQ/L (21.0-32.0); BLOOD UREA NITROGEN 68 MG/DL (7-18); CALCIUM 8.4 MG/DL (8.5-10.1); CHLORIDE 118 MEQ/L (98-107); CREATININE 3.87 MG/DL (0.60-1.30); GLOMERULAR FILTRATION RATE 15 ML/MIN (>89); GLUCOSE,RANDOM 214 MG/DL (74-106); MAGNESIUM 2.2 MG/DL (1.5-2.5); PHOSPHORUS 3.1 MG/DL (2.5-4.9); SODIUM (NA) 147 MEQ/L (136-145); TOTAL BILIRUBIN ADULT 0.6 MG/DL (0.2-1.0); TOTAL PROTEIN 6.4 GM/DL (6.4-8.2)
[2017-07-24] MEDS: PROPOFOL 1000 MG/100 ML INJ 100 ML IV PRN (17:12)
[2017-07-24] MEDS: DILTIAZEM HCL 60 MG TAB OG-TUBE SCH ×2 (17:12→23:00)
--- NOTE | 2017-07-24 17:18 | HHI.HCPN ---
Reason for visit a. To assist with evaluation and management of symptoms including: dyspnea, pain. b. To assist medical decision maker(s) with: better understanding of current medical conditions; weighing benefits/burdens of medical treatment options; making medical treatment decisions. . Subjective/Interval History Patient seen and examined in ICU. Daughter/ HCS, Lilly at bedside, son arrived shortly after. Patient remains on mech vent, FiO2 45%. Using accessory muscles to breath. Off sedation. He does not open eyes to voice or exam. He might have attempted to squeeze my hand on the left, though very subtle and not convincing. Diaphoretic , Tmax 102. Tachycardic, tachypneic. WBC increased to 31.5. Creatinine 3.87. Albumin 2.7. Urine culture no growth in 24. Worsening renal function and decreased UOP. Nephrology, Dr. Carter has been consulted, family does not want dialysis. . Family/friend interactions Spoke with Lilly (HCS/ daughter) and son (Roberto) at bedside. Medical update provided. Family has elected NO CODE, no dialysis, no reintubation if medically extubated, no trach or PEG. Will likely consider transition to comfort measures with withdrawal of life support on Friday if no clinical improvement or if condition worsens in the meantime. 5:15pm: Spoke with Lilly (dtr/HCS), Kim (granddaughter) and brother at bedside. Director Loss Prevention from [facility] in room briefly. Family declined consulting solution manager visit at this time. I provided medical update since my visit earlier today. Review of worsening renal function (creatinine 3.87), renal US consistent with medical renal disease, no obstruction, decreased urine output (50cc this shift) despite Lasix. Patient did not wake up off sedation today. He has labored respirations on mech vent since this morning, not improving with restarting and increase of sedation. Tmax 102, Cultures pending advised results will take 72 hours for final results. Explained he may be septic and this may lead to hypotension (possible need for pressors), additional antibiotics etc. We talked about possible scenarios and options of continued aggressive care short of NO CODE, no dialysis, no trach/PEG vs no further escalation of care vs transition to comfort with withdrawal of life support. Family verbalizes patient would already be furious with "what they have been doing to him." Children are trying to give his (there mother) time to accept his condition. I suspect they will transition to comfort if his conditions to worsen as it has today. . Advance Directives Living Will: Copy in medical record Health Care Surrogate: Copy in medical record Advance Directive Specifics Health Care Surrogate(s): Patient is not capacitated to make his own healthcare decisions, will not regain capacity given dementia and new ischemic stroke. . 3 adult children. Has written advanced directives, Designation of Health care surrogate names daughter Radha Ayers (Terri) is designated healthcare surrogate and son, Ernesto Mendoza as alternate HCS. . Significant change in goals: Spoke with Lilly (HCS/ daughter) and son (Roberto) at bedside. Medical update provided. Family has elected NO CODE, no dialysis, no reintubation if medically extubated, no trach or PEG. Will likely consider transition to comfort measures with withdrawal of life support on Friday if no clinical improvement or if condition worsens in the meantime. . Objective Vital Signs Date Time Temp Pulse Resp B/P (MAP) Pulse Ox O2 Delivery O2 Flow Rate FiO2 07/24/17 16:06 93 45 07/24/17 13:13 95 45 07/24/17 07:47 94 45 07/24/17 07:47 94 Ventilator 45 07/24/17 06:00 110 07/24/17 04:21 95 45 07/24/17 04:00 45 07/24/17 04:00 131 07/24/17 04:00 100.7 134 26 141/57 (85) 93 07/24/17 02:32 95 45 07/24/17 02:00 131 07/24/17 00:00 131 07/24/17 00:00 45 07/24/17 00:00 102.0 142 26 118/67 (84) 93 07/23/17 23:12 93 45 07/23/17 22:00 128 07/23/17 20:20 94 45 07/23/17 20:00 45 07/23/17 20:00 123 07/23/17 20:00 100.3 123 14 116/87 (97) 93 07/23/17 19:00 Mechanical Ventilator 50 07/23/17 18:00 135 Intake & Output 07/24/17 07/24/17 07:00 19:00 Intake Total 1000 ml Output Total 100 ml Balance -100 ml 1000 ml Intake IV Total 1000 ml Output Urine Total 100 ml # Bowel Movements 0 Physical Exam CONSTITUTIONAL/GENERAL: This is an elderly, thin male, in no apparent distress. TUBES/LINES/DRAINS: ETT, OG, PIV, Stack, SCDs. SKIN: diaphoretic. EYES: eyes closed. CARDIOVASCULAR: Tachycardic. Irregular. RESPIRATORY/CHEST: On mech vent. Diminished breath sounds. Using accessory muscles to breath. GASTROINTESTINAL: Abdomen soft, nondistended. No guarding. Bowel sounds present. GENITOURINARY: Without palpable bladder distension. Stack catheter in place. MUSCULOSKELETAL: Trace edema. NEUROLOGICAL: Unresponsive off sedation. Questionable squeeze of left hand on command. PSYCHIATRIC: Unresponsive. . Diagnostic Tests Laboratory Laboratory Tests Test 07/21/17 18:40 07/22/17 05:49 07/23/17 04:58 07/23/17 05:27 Urine Color YELLOW (YELLW/STRAW) Urine Turbidity CLEAR (CLEAR) Urine pH 5.5 (5.0-8.5) Urine Specific [place] 1.013 (1.002-1.035) Urine Protein TRACE mg/dL (NEG-TRACE) Urine Glucose (UA) NEG mg/dL (NEG) Urine Ketones NEG mg/dL (NEG) Urine Occult Blood NEG (NEG) Urine Nitrite NEG (NEG) Urine Bilirubin NEG (NEG) Urine Urobilinogen LESS THAN 2.0 MG/DL (LESS Urine Leukocyte Esterase NEG (NEG) Urine RBC 2 /hpf (0-3) Urine Mucus FEW /lpf (OCC) Microscopic Urinalysis Comment CATH-CULT NOT IND White Blood Count 14.2 TH/MM3 (4.0-11.0) Red Blood Count 4.86 MIL/MM3 (4.50-5.90) Hemoglobin 13.0 GM/DL (13.0-17.0) Hematocrit 39.7 % (39.0-51.0) Mean Corpuscular Volume 81.6 FL (80.0-100.0) Mean Corpuscular Hemoglobin 26.8 PG (27.0-34.0) Mean Corpuscular Hemoglobin Concent 32.8 % (32.0-36.0) Red Cell Distribution Width 15.8 % (11.6-17.2) Platelet Count 81 TH/MM3 (150-450) Mean Platelet Volume 10.7 FL (7.0-11.0) Neutrophils (%) (Auto) 64.4 % (16.0-70.0) Lymphocytes (%) (Auto) 13.8 % (9.0-44.0) Monocytes (%) (Auto) 21.5 % (0.0-8.0) Eosinophils (%) (Auto) 0.1 % (0.0-4.0) Basophils (%) (Auto) 0.2 % (0.0-2.0) Neutrophils # (Auto) 9.2 TH/MM3 (1.8-7.7) Lymphocytes # (Auto) 2.0 TH/MM3 (1.0-4.8) Monocytes # (Auto) 3.1 TH/MM3 (0-0.9) Eosinophils # (Auto) 0.0 TH/MM3 (0-0.4) Basophils # (Auto) 0.0 TH/MM3 (0-0.2) CBC Comment AUTO DIFF Differential Comment AUTO DIFF CONFIRMED Platelet Estimate LOW (NORMAL) Platelet Morphology Comment ENLARGED (NORMAL) Ovalocytes 1+ (NORMAL) Acanthocytes OCC (NORMAL) Blood Urea Nitrogen 21 MG/DL (7-18) Creatinine 1.34 MG/DL (0.60-1.30) Random Glucose 81 MG/DL (74-106) Calcium Level 8.8 MG/DL (8.5-10.1) Sodium Level 144 MEQ/L (136-145) Potassium Level 3.9 MEQ/L (3.5-5.1) Chloride Level 111 MEQ/L (98-107) Carbon Dioxide Level 22.9 MEQ/L (21.0-32.0) Anion Gap 10 MEQ/L (5-15) Estimat Glomerular Filtration Rate 51 ML/MIN (>89) Triglycerides Level 75 MG/DL (42-150) Cholesterol Level 93 MG/DL (120-200) LDL Cholesterol 33 MG/DL (0-99) HDL Cholesterol 45.1 MG/DL (40.0-60.0) Cholesterol/HDL Ratio 2.06 RATIO Nasal Screen MRSA (PCR) MRSA NOT DETECTED (NOT Blood Gas Puncture Site RT RADIAL Blood Gas Patient Temperature 98.6 Blood Gas HCO3 19 mmol/L (22-26) Blood Gas Base Excess -4.8 mmol/L (-2-2) Blood Gas Oxygen Saturation 98 % (90-100) Arterial Blood pH 7.44 (7.380-7.420) Arterial Blood Partial Pressure CO2 28 mmHg (38-42) Arterial Blood Partial Pressure O2 400 mmHg (61-120) Arterial Blood Oxygen Content 21.0 Vol % (12.0-20.0) Arterial Blood Carboxyhemoglobin 1.0 % (0-4) Arterial Blood Methemoglobin 1.1 % (0-2) Blood Gas Hemoglobin 14.6 G/DL (12.0-16.0) Oxygen Delivery Device VENTILATOR Blood Gas Ventilator Setting PRVC/ AC Blood Gas Inspired Oxygen 100 % Test 07/23/17 05:30 07/23/17 10:32 07/23/17 15:23 07/24/17 05:44 Urine Color LIGHT-YELLOW (YELLW/STRAW) Urine Turbidity CLEAR (CLEAR) Urine pH 5.5 (5.0-8.5) Urine Specific [place] 1.015 (1.002-1.035) Urine Protein 30 mg/dL (NEG-TRACE) Urine Glucose (UA) NEG mg/dL (NEG) Urine Ketones 10 mg/dL (NEG) Urine Occult Blood TRACE (NEG) Urine Nitrite NEG (NEG) Urine Bilirubin NEG (NEG) Urine Urobilinogen LESS THAN 2.0 MG/DL (LESS Urine Leukocyte Esterase NEG (NEG) Urine RBC 2 /hpf (0-3) Urine WBC LESS THAN 1 /hpf (0-5) Urine Squamous Epithelial Cells <1 /hpf (0-5) Urine Bacteria RARE /hpf (NONE) Urine Hyaline Casts 3 /lpf (RARE) Urine Mucus FEW /lpf (OCC) Microscopic Urinalysis Comment CATH-CULTURE IND Magnesium Level 2.0 MG/DL (1.5-2.5) White Blood Count 29.4 TH/MM3 (4.0-11.0) Red Blood Count 4.79 MIL/MM3 (4.50-5.90) Hemoglobin 12.8 GM/DL (13.0-17.0) Hematocrit 39.8 % (39.0-51.0) Mean Corpuscular Volume 83.1 FL (80.0-100.0) Mean Corpuscular Hemoglobin 26.7 PG (27.0-34.0) Mean Corpuscular Hemoglobin Concent 32.1 % (32.0-36.0) Red Cell Distribution Width 16.2 % (11.6-17.2) Platelet Count 89 TH/MM3 (150-450) Mean Platelet Volume 10.0 FL (7.0-11.0) Blood Urea Nitrogen 34 MG/DL (7-18) Creatinine 2.44 MG/DL (0.60-1.30) Random Glucose 112 MG/DL (74-106) Calcium Level 8.4 MG/DL (8.5-10.1) Sodium Level 144 MEQ/L (136-145) Potassium Level 4.4 MEQ/L (3.5-5.1) Chloride Level 114 MEQ/L (98-107) Carbon Dioxide Level 17.1 MEQ/L (21.0-32.0) Anion Gap 13 MEQ/L (5-15) Estimat Glomerular Filtration Rate 25 ML/MIN (>89) Digoxin Level 1.1 NG/ML (0.8-2.0) Test 07/24/17 13:22 White Blood Count 31.5 TH/MM3 (4.0-11.0) Red Blood Count 5.11 MIL/MM3 (4.50-5.90) Hemoglobin 13.5 GM/DL (13.0-17.0) Hematocrit 42.1 % (39.0-51.0) Mean Corpuscular Volume 82.5 FL (80.0-100.0) Mean Corpuscular Hemoglobin 26.4 PG (27.0-34.0) Mean Corpuscular Hemoglobin Concent 32.0 % (32.0-36.0) Red Cell Distribution Width 16.3 % (11.6-17.2) Platelet Count 85 TH/MM3 (150-450) Mean Platelet Volume 10.3 FL (7.0-11.0) Neutrophils (%) (Auto) 73.8 % (16.0-70.0) Lymphocytes (%) (Auto) 3.3 % (9.0-44.0) Monocytes (%) (Auto) 22.7 % (0.0-8.0) Eosinophils (%) (Auto) 0.0 % (0.0-4.0) Basophils (%) (Auto) 0.2 % (0.0-2.0) Neutrophils # (Auto) 23.2 TH/MM3 (1.8-7.7) Lymphocytes # (Auto) 1.0 TH/MM3 (1.0-4.8) Monocytes # (Auto) 7.1 TH/MM3 (0-0.9) Eosinophils # (Auto) 0.0 TH/MM3 (0-0.4) Basophils # (Auto) 0.1 TH/MM3 (0-0.2) CBC Comment AUTO DIFF Differential Total Cells Counted 100 Neutrophils % (Manual) 75 % (16-70) Band Neutrophils % 6 % (0-6) Lymphocytes % 8 % (9-44) Monocytes % 11 % (0-8) Neutrophils # (Manual) 25.5 TH/MM3 (1.8-7.7) Differential Comment FINAL DIFF MANUAL Platelet Estimate LOW (NORMAL) Platelet Morphology Comment ENLARGED (NORMAL) Red Cell Morphology Comment NORMAL (NORMAL) Blood Urea Nitrogen 68 MG/DL (7-18) Creatinine 3.87 MG/DL (0.60-1.30) Random Glucose 214 MG/DL (74-106) Total Protein 6.4 GM/DL (6.4-8.2) Albumin 2.7 GM/DL (3.4-5.0) Calcium Level 8.4 MG/DL (8.5-10.1) Phosphorus Level 3.1 MG/DL (2.5-4.9) Magnesium Level 2.2 MG/DL (1.5-2.5) Alkaline Phosphatase 84 U/L (45-117) Aspartate Amino Transf (AST/SGOT) 34 U/L (15-37) Alanine Aminotransferase (ALT/SGPT) 26 U/L (12-78) Total Bilirubin 0.6 MG/DL (0.2-1.0) Sodium Level 147 MEQ/L (136-145) Potassium Level 4.3 MEQ/L (3.5-5.1) Chloride Level 118 MEQ/L (98-107) Carbon Dioxide Level 19.1 MEQ/L (21.0-32.0) Anion Gap 10 MEQ/L (5-15) Estimat Glomerular Filtration Rate 15 ML/MIN (>89) Lactic Acid Level 2.0 mmol/L (0.4-2.0) Result Diagram: 07/24/17 1322 07/24/17 1322 Microbiology Microbiology Date/Time Source Procedure Growth Status 07/23/17 05:30 Urine Catheterized Urine Urine Culture - Preliminary NO GROWTH IN 24 HOURS. Resulted Imaging Last Impressions Renal Ultrasound 07/23/17 0000 Signed Impressions: Service Date/Time: Sunday, July 23, 2017 17:55 - CONCLUSION: 1. Echogenic kidneys which can be seen with medical renal disease. 2. Bilateral renal cysts. Connor Braxton MD Chest X-Ray 07/23/17 0000 Signed Impressions: Service Date/Time: Sunday, July 23, 2017 04:44 - CONCLUSION: 1. Lungs are clear. 2. Nasogastric tube with the side port above the GE junction. This should probably be advanced a few centimeters. Reji Gomez MD Head Magnetic Resonance Angiography 07/22/17 0000 Signed Impressions: Service Date/Time: Saturday, July 22, 2017 14:59 - CONCLUSION: 1. Absent flow in the right A1 segment and reconstitution of flow in the A2 segment via a patent anterior communicating artery. Smith Hilario MD Brain MRI 07/22/17 0000 Signed Impressions: Service Date/Time: Saturday, July 22, 2017 14:59 - CONCLUSION: 1. Acute nonhemorrhagic infarct in the left periventricular jones radiata. 2. Diffuse severe ischemic white matter change throughout the supratentorial brain and moderate central subcortical atrophy. Smith Hilario MD Head CT 07/21/17 1122 Signed Impressions: Service Date/Time: Friday, July 21, 2017 11:55 - CONCLUSION: 1. Moderate to severe atrophic changes old infarcts. 2. No acute hemorrhage, mass or evidence of acute infarction. Eliazar Pimentel MD Carotid Artery Ultrasound 07/21/17 0000 Signed Impressions: Service Date/Time: Friday, July 21, 2017 13:41 - CONCLUSION: Hemodynamic profile is characteristic of less than 50%% stenosis bilaterally. Smith Hilario MD Procedures * 07/23/17 -intubated . Assessment and Plan Disease Oriented Problem List: (1) Dementia (2) CKD (chronic kidney disease) stage 3, GFR 30-59 ml/min (3) Depression with anxiety (4) A-fib (5) CVA (cerebral vascular accident) (6) BPH (benign prostatic hyperplasia) (7) DM (diabetes mellitus) (8) HTN (hypertension) (9) Acute ischemic left MCA stroke Symptom Scale: (1) Dyspnea 0-10 Scale: Unable to quantify Comment: on mech vent, tachypneic off sedation. (2) Pain 0-10 Scale: Unable to quantify Comment: sedated on vent, no obvious pain. Pertinent Non-Medical Issues Psychosocial: . 2 sons and 1 daughter. Spiritual: Confucianism daniel. Legal: Patient is not capacitated to make his own healthcare decisions, will not regain capacity given dementia and new ischemic stroke. . 3 adult children. Has written advanced directives, donaldo Garcia "Jazmín Ayers is designated healthcare surrogate. Copy on chart. Ethical issues impacting care: Non known concerns at this time. . Important Contacts * Lilly Mendoza, daughter/ primary [facility]; [phone] * Ernesto Mendoza, son/ alternate [facility]; [phone] * Sherley Mendoza, ; [phone] or [phone] . Prognosis Mr. Mendoza is an 86 year old male with dementia (not end stage) with progressive cognitive and functional decline. He was admitted with new left ischemic stroke. History of A. Fib. on Eliquis. He was likely aspirating and developed respiratory distress and was emergently intubated. Given his ongoing trajectory of decline he is high risk for further decline. While he may survive this admission he has poor rehab potential given recent decline, dementia and new ischemic stroke. . Code Status: No Code Plan * Patient is not capacitated to make his own healthcare decisions, will not regain capacity given dementia and new ischemic stroke. . 3 adult children. Has written advanced directives, donaldo Ayers (Terri) is designated healthcare surrogate. * NO CODE * Spoke with Lilly ([facility]/ daughter) and son (Roberto) at bedside. Medical update provided. Family has elected NO CODE, no dialysis, no reintubation if medically extubated, no trach or PEG. Will likely consider transition to comfort measures with withdrawal of life support if no clinical improvement or if condition worsen. * EFREN Floyd will see patient on 07/25/17. * SYMPTOMS: Dyspnea: On mechanical ventilation, medical extubation appears unlikely today. Family indicates if patient is medically extubated they would not want reintubation and will transition to comfort measures if he fails. Labored respiration on vent today. Pain: Unresponsive off sedation, no obvious signs of pain during this visit. We will continue to monitor. * Palliative care will continue to follow to assist with symptom management further clarification of medical treatment goals throughout hospital course. . Attestation To help prompt me to consider important information that might be impacting today's encounter and assessment, information from prior notes written by myself or my colleagues may have been "brought forward" into today's note. My signature on this note, however, is an attestation that I personally performed the exam, history, and/or decision-making noted today, and, unless otherwise indicated, the interactions with patient, family, and staff as well as the review of records all occurred today. I also attest that the listed assessment and stated plan reflect my best clinical judgment today based on the combination of historical information, prior notes, and today's exam/ interactions. When time spent is documented, it refers only to time spent today by the signer, or if indicated, combined time spent today by collaborating physician/nurse practitioner. Lesly Manzano July 24, 2017 17:18
[2017-07-24] MEDS: PIPERACIL-TAZO 2.25 GM PREMIX 50 ML IV SCH (18:00)
[2017-07-24 19:10] LABS: AMORPHOUS SEDIMENT, URINE OCC; BACTERIA, URINE RARE /hpf; BILIRUBIN, URINE NEG (NEG); BLOOD, URINE MOD (NEG); GLUCOSE,URINE NEG (NEG); HYALINE CAST, URINE 50 /lpf (RARE); KETONE, URINE NEG (NEG); MUCUS URINE FEW /lpf (OCC); NITRITE,URINE NEG (NEG); URINE COLOR RED (YELLW/STRAW); URINE LEUKOCYTE ESTERASE LARGE (NEG)
--- NOTE | 2017-07-24 23:14 | RADRPT ---
EXAM DATE/TIME: 07/24/2017 22:48 [facility] COMPARISON: CT BRAIN W/O CONTRAST, July 21, 2017, 11:55. INDICATIONS : Right sided weakness. Follow up. RADIATION DOSE: 49.70 CTDIvol (mGy) ; Patient motion MEDICAL HISTORY : Cerebrovascular disease. Hypertension. Diabetes mellitus type 2. SURGICAL HISTORY : None. ENCOUNTER: Subsequent ACUITY: 3 days PAIN SCALE: Non-responsive LOCATION: cranial TECHNIQUE: Multiple contiguous axial images were obtained of the head. Using automated exposure control and adj ustment of the mA and/or kV according to patient size, radiation dose was kept as low as reasonably a chievable to obtain optimal diagnostic quality images. DICOM format image data is available electro nically for review and comparison. FINDINGS: There is been no change in appearance of the brain. There is moderate patchy diminished attenuation i n periventricular white matter and no acute bilateral basal ganglia lacunar infarcts. No evidence of intracranial mass or hemorrhage. Nothing to suggest acute infarction. Extracranial structures are sta ble, benign and intact. CONCLUSION: Stable brain appearance. Roberto La MD on July 24, 2017 at 23:11 Board Certified Radiologist. This report was verified electronically.
[2017-07-25] VITALS (8 sets, daily range): BP systolic 63–91; BP diastolic 40–57; PULSE 97–108; RESP 21–35; TEMP 98.1–100.2; O2SAT 88–96
[2017-07-25] MEDS: SODIUM CHLOR 0.9% 1000 ML INJ 1,000 ML IV SCH ×4 (00:15→02:17)
[2017-07-25] MEDS: PROPOFOL 1000 MG/100 ML INJ 100 ML IV PRN (01:27)
[2017-07-25] MEDS: DILTIAZEM HCL 60 MG TAB OG-TUBE SCH (05:00)
[2017-07-25] MEDS: FAMOTIDINE 20 MG/2 ML VIAL IV PUSH SCH (05:00)
[2017-07-25 05:06] LABS: HEMATOCRIT 44.3 % (39.0-51.0); HEMOGLOBIN 13.8 GM/DL (13.0-17.0); MEAN CELL VOLUME 84.3 FL (80.0-100.0); MEAN CORPUSCULAR HEMOGLOBIN 26.1 PG (27.0-34.0); MEAN PLATELET VOLUME 11.6 FL (7.0-11.0); PLATELET COUNT 90 TH/MM3 (150-450); RED BLOOD COUNT 5.26 MIL/MM3 (4.50-5.90); RED CELL DISTRIBUTION WIDTH 16.8 % (11.6-17.2); WHITE BLOOD COUNT 56.4 TH/MM3 (4.0-11.0)
[2017-07-25] MEDS: PIPERACIL-TAZO 2.25 GM PREMIX 50 ML IV SCH ×2 (06:30)
[2017-07-25 07:32] LABS: BANDS 19 % (0-6); BURR CELLS 1+ (NORMAL); LYMPHOCYTES 3 % (9-44); METAMYELOCYTES 3 % (0-1); MONOCYTES 12 % (0-8); MYELOCYTES 1 % (0-0); NEUTROPHIL # MANUAL DIFF 47.9 TH/MM3 (1.8-7.7); OVALOCYTES 1+ (NORMAL); POLYS (SEG NEUTROPHILS) 62 % (16-70)
--- NOTE | 2017-07-25 08:28 | HHI.PR ---
Review/Management Diagnosis/Plan: (1) Acute ischemic left MCA stroke ICD Codes: I63.512 - Cerebral infarction due to unspecified occlusion or stenosis of left middle cerebral artery Status: Acute Plan: rt ue>le paresis with expressive aphasia mri brain reviewed. official report pending. + left mca subcortical stroke failed eliquis if he was taking it daily likely cardioembolic echo- mitral valve calcification; aortic stenosis, ef 60+% recs significantly elevated wbc count and fever. it is possible he could get some improvement from his stroke with rehab; stroke size is mild to moderate. however, resp status and SIRS appear to be limiting factors in his neurological improvement limited exam repeat ct brain 07/24 - stable palliative care following d/w pt's spouse, rn (2) SIRS (systemic inflammatory response syndrome) ICD Codes: R65.10 - Systemic inflammatory response syndrome (SIRS) of non- infectious origin without acute organ dysfunction Status: Acute (3) A-fib ICD Codes: I48.91 - A-fib Status: Chronic Plan: rvr with resp distress per medical/ccm (4) HTN (hypertension) ICD Codes: I10 - HTN (hypertension) Status: Chronic Subjective Subjective Comments No acute events reported Active Medications Current Medications Medications (Trade) Dose Ordered Sig/Jun Route Start Time Stop Time Status Last Admin (NS Flush) 2 ml UNSCH PRN IV FLUSH 07/21/17 13:30 (NS Flush) 2 ml BID IV FLUSH 07/21/17 21:00 07/24/17 20:12 (Tylenol) 650 mg Q4H PRN PO 07/21/17 13:30 Future Hold (Zofran Inj) 4 mg Q6H PRN IVP 07/21/17 13:30 (Narcan Inj) 0.4 mg UNSCH PRN IV PUSH 07/21/17 13:30 (Milk Of Magnesia Liq) 30 ml Q12H PRN PO 07/21/17 13:30 Future Hold (Lipitor) 10 mg HS PO 07/21/17 21:00 Future Hold (Wellbutrin Sr) 150 mg DAILY PO 07/22/17 09:00 Future Hold 07/22/17 10:45 (Namenda) 10 mg DAILY PO 07/22/17 09:00 Future Hold 07/22/17 10:45 (Pill Splitter) 1 ea UNSCH PRN OTHER 07/21/17 14:00 (Vasotec Inj) 1.25 mg Q6H PRN IV PUSH 07/21/17 21:15 (Eliquis) 5 mg BID PO 07/22/17 11:00 Future Hold Sodium Chloride 1,000 ml @ 50 mls/hr Q20H IV 07/22/17 14:45 07/25/17 01:54 (Levsin) 0.25 mg Q4H PRN PO 07/22/17 16:45 (Ativan Inj) 0.5 mg Q8H PRN IV 07/22/17 20:30 07/22/17 21:14 (Peridex 0.12% Liq) 15 ml BID@08,20 MT 07/23/17 08:00 07/24/17 20:00 Propofol 100 ml @ 2.55 mls/hr TITRATE PRN IV 07/23/17 04:45 07/25/17 01:27 (Aspirin) 325 mg DAILY OG-TUBE 07/23/17 10:30 07/24/17 09:55 (Cardizem) 60 mg Q6H OG-TUBE 07/24/17 17:00 07/25/17 05:00 (Lovenox Inj) 30 mg Q24H SQ 07/25/17 12:00 (Pepcid Inj) 10 mg Q12H IV PUSH 07/24/17 17:00 07/25/17 05:00 Piperacillin Sod/ Tazobactam Sod 50 ml @ 100 mls/hr Q6H IV 07/24/17 18:00 07/25/17 06:30 Allergies Allergies Coded Allergies No Known Allergies (Verified Allergy, Unknown, 07/21/17) Review of Systems All other ROS: Unable to obtain Exam I&O / VS Vital Signs Date Time Temp Pulse Resp B/P (MAP) Pulse Ox O2 Delivery O2 Flow Rate FiO2 07/25/17 06:00 103 07/25/17 04:07 96 45 07/25/17 04:00 45 07/25/17 04:00 100.2 104 35 91/53 (66) 93 07/25/17 04:00 106 07/25/17 02:00 106 07/25/17 00:30 94 45 07/25/17 00:00 108 07/25/17 00:00 40 07/25/17 00:00 99.0 104 35 82/57 (65) 93 07/25/17 00:00 45 07/24/17 22:35 97 100 07/24/17 22:00 114 07/24/17 21:41 93 45 07/24/17 20:00 109 07/24/17 20:00 101.0 111 28 94/51 (65) 93 07/24/17 20:00 45 07/24/17 19:00 Mechanical Ventilator 45 07/24/17 18:00 109 07/24/17 16:06 93 45 07/24/17 16:00 45 07/24/17 16:00 107 07/24/17 16:00 99.3 107 30 151/92 (111) 94 07/24/17 14:00 87 07/24/17 13:13 95 45 07/24/17 12:00 45 07/24/17 12:00 117 07/24/17 12:00 99.1 117 31 151/96 (114) 94 07/24/17 10:00 115 Eye: PERRL, EOMI Respiratory: Non-labored respirations Exam Comments intubated, on propofol gtt-held for exam, in deep stupor, eomi, ou 2.5mm sluggish, not park to tactile Objective Micro and Labs Laboratory Tests Test 07/24/17 13:22 07/24/17 18:38 07/25/17 03:40 07/25/17 06:29 White Blood Count 31.5 56.4 Red Blood Count 5.11 5.26 Hemoglobin 13.5 13.8 Hematocrit 42.1 44.3 Mean Corpuscular Volume 82.5 84.3 Mean Corpuscular Hemoglobin 26.4 26.1 Mean Corpuscular Hemoglobin Concent 32.0 31.0 Red Cell Distribution Width 16.3 16.8 Platelet Count 85 90 Mean Platelet Volume 10.3 11.6 Neutrophils (%) (Auto) 73.8 Lymphocytes (%) (Auto) 3.3 Monocytes (%) (Auto) 22.7 Eosinophils (%) (Auto) 0.0 Basophils (%) (Auto) 0.2 Neutrophils # (Auto) 23.2 Lymphocytes # (Auto) 1.0 Monocytes # (Auto) 7.1 Eosinophils # (Auto) 0.0 Basophils # (Auto) 0.1 CBC Comment AUTO DIFF AUTO DIFF Differential Total Cells Counted 100 100 Neutrophils % (Manual) 75 62 Band Neutrophils % 6 19 Lymphocytes % 8 3 Monocytes % 11 12 Neutrophils # (Manual) 25.5 47.9 Differential Comment FINAL DIFF MANUAL FINAL DIFF MANUAL Platelet Estimate LOW LOW Platelet Morphology Comment ENLARGED ENLARGED Red Cell Morphology Comment NORMAL Blood Urea Nitrogen 68 Creatinine 3.87 Random Glucose 214 Total Protein 6.4 Albumin 2.7 Calcium Level 8.4 Phosphorus Level 3.1 Magnesium Level 2.2 Alkaline Phosphatase 84 Aspartate Amino Transf (AST/SGOT) 34 Alanine Aminotransferase (ALT/SGPT) 26 Total Bilirubin 0.6 Sodium Level 147 Potassium Level 4.3 Chloride Level 118 Carbon Dioxide Level 19.1 Anion Gap 10 Estimat Glomerular Filtration Rate 15 Lactic Acid Level 2.0 Urine Color RED Urine Turbidity CLOUDY Urine pH 5.0 Urine Specific [place] 1.016 Urine Protein 30 Urine Glucose (UA) NEG Urine Ketones NEG Urine Occult Blood MOD Urine Nitrite NEG Urine Bilirubin NEG Urine Urobilinogen 2.0 Urine Leukocyte Esterase LARGE Urine RBC Urine WBC Urine Amorphous Sediment OCC Urine Bacteria RARE Urine Hyaline Casts 50 Urine Mucus FEW Microscopic Urinalysis Comment CATH-CULTURE IND Metamyelocytes 3 Myelocytes 1 Ovalocytes 1+ Hollis Cells 1+ Date/Time Source Procedure Growth Status 07/24/17 18:38 Sputum Endotracheal Gram Stain Pending Received 07/24/17 18:38 Sputum Endotracheal Sputum Culture Pending Received 07/24/17 18:38 Urine Catheterized Urine Urine Culture Pending Received Problem Qualifiers (1) A-fib: Qualified Codes: I48.2 - Chronic atrial fibrillation (2) HTN (hypertension): Qualified Codes: I10 - Essential (primary) hypertension Umang Renteria MD July 25, 2017 08:28
[2017-07-25 10:02] LABS: ALBUMIN 2.2 GM/DL (3.4-5.0); ALKALINE PHOSPHATASE 80 U/L (45-117); ALT (GPT) 160 U/L (12-78); AST (GOT) 233 U/L (15-37); BICARBONATE 13.8 MEQ/L (21.0-32.0); BLOOD UREA NITROGEN 85 MG/DL (7-18); CALCIUM 8.5 MG/DL (8.5-10.1); CHLORIDE 120 MEQ/L (98-107); CREATININE 5.28 MG/DL (0.60-1.30); GLOMERULAR FILTRATION RATE 10 ML/MIN (>89); GLUCOSE,RANDOM 106 MG/DL (74-106); SODIUM (NA) 151 MEQ/L (136-145); TOTAL BILIRUBIN ADULT 0.9 MG/DL (0.2-1.0); TOTAL PROTEIN 5.9 GM/DL (6.4-8.2)
--- NOTE | 2017-07-25 11:07 | HHI.CCPN ---
Subjective Remarks/Hospital Course Late entry for patient seen on 07/24 07/23: This is a 86-year-old male with history of atrial fibrillation, hypertension depression/anxiety and prior CVA 11/2014: acute CVA in [place] and what appear to be small vessel disease type ischemic CVA. Patient was at adult daycare (four days ago) when he began having difficulty ambulating then sustained a fall trying to get into his house. His daughter visited him night and patient was back to his baseline. On Friday patient had difficulty speaking which resolved. The day of admission the patient again had difficulty ambulating and had difficult speaking, and a family called [facility]. Patient presented to the ER nonverbal with a right facial droop. Prior to this admission the patient was able to ambulate with a walker, dress and feed himself. The patient was anticoagulated with Eliquis and he was not a candidate for TPA administration. He was admitted to neuroscience unit where today early in the morning he developed uncontrolled rapid A. fib with RVR , and severe respiratory distress requiring emergent intubation. The CODE STATUS was discussed by Kristal [facility] nurse with patient's prior to intubation who requested intubation and mechanical ventilation. 07/24: Patient remains encephalopathic orally intubated on mechanical ventilation. Was given Lopressor 5 mg IV for A. fib with RVR. Worsening renal function. Objective Vital Signs Date Time Temp Pulse Resp B/P (MAP) Pulse Ox O2 Delivery O2 Flow Rate FiO2 07/25/17 08:18 91 45 07/25/17 08:18 Ventilator 07/25/17 08:00 98.1 97 21 63/40 (48) 07/23/17 02:57 15.00 Intake and Output 07/25/17 07/25/17 07/26/17 08:00 16:00 00:00 Intake Total 2755 ml Balance 2755 ml Result Diagram: 07/25/17 0340 07/25/17 0913 Other Results Microbiology Date/Time Source Procedure Growth Status 07/23/17 05:30 Urine Catheterized Urine Urine Culture - Final NO GROWTH IN 48 HOURS. Complete Imaging Last 24 hours Impressions Chest X-Ray 07/23/17 0000 Signed Impressions: Service Date/Time: Sunday, July 23, 2017 02:10 - CONCLUSION: Hypoinflation with minimal bibasilar atelectatic changes. Reji Gomez MD Objective Remarks GENERAL: Elderly gentleman sedated and intubated SKIN: Warm and dry. HEAD: Normocephalic. EYES: No scleral icterus. No injection or drainage. NECK: Supple, trachea midline. No JVD or lymphadenopathy. CARDIOVASCULAR: Irregularly, irregular rate and rhythm without murmurs, gallops , or rubs. RESPIRATORY: Breath sounds equal bilaterally. No accessory muscle use. GASTROINTESTINAL: Abdomen soft, non-tender, nondistended. MUSCULOSKELETAL: No cyanosis, or edema. BACK: Nontender without obvious deformity. NEURO EXAM: Sedated/encephalopathic, orally intubated on mechanical ventilation A/P Assessment and Plan Acute respiratory failure -Intubated for airway protection -Continue mechanical ventilation -No weaning until neurologically and hemodynamically improve Acute CVA -Head of bed at 30 -US bilateral carotid arteries -2D echocardiogram -PT and OT as tolerated -Management per neurology Consult PT Atrial fibrillation -Continuous telemetry -IV digoxin administered on the floor by primary service -Lopressor IV as needed. Cardizem via OG tube Dementia -Memory loss -Namenda 10 mg p.o. daily Anxiety/depression -Resume Wellbutrin 150 mg p.o. daily and Xanax 0.25 mg p.o. every 6 hours as needed for anxiety DVT GI prophylaxis -Harman's and SCDs -Subcu heparin -Pepcid Discussed with family member at bedside on 07/24. Discussed with palliative care team. Family deciding regarding de-escalation of therapy in view of poor prognosis. Critical Care: The total critical care time was 35 minutes. Time to perform other separately billable procedures was not included in the critical care time. Bismark Dunne MD July 25, 2017 11:07
[2017-07-25] MEDS ORDERED: ENOXAPARIN SODIUM 30 MG/0.3 ML SYRINGE SQ SCH (12:00)
== END 2017-07-25 13:47 | disposition expired | DRG 64 ==
LOC: NEPC 11:01 → NEDA 13:10 → INTOOBSV 13:10 → OBSVTOIN 13:45 → N05B 14:54 → N03B 07-23 03:55
PROVIDERS: ADMIT Hospitalist; ATTEND Hospitalist
PROC: 0BH17EZ Insertion of Endotracheal Airway into Trachea, Via Natural or Artificial Opening (ICD-10-PCS; principal; 2017-07-23)
PROC: 5A1945Z Respiratory Ventilation, 24-96 Consecutive Hours (ICD-10-PCS; 2017-07-23)
DX: I63.512 Cerebral infarction due to unspecified occlusion or stenosis of left middle cerebral artery (principal); J96.00 Acute respiratory failure, unspecified whether with hypoxia or hypercapnia; N17.9 Acute kidney failure, unspecified; R65.10 Systemic inflammatory response syndrome (SIRS) of non-infectious origin without acute organ dysfunction; I48.2 Chronic atrial fibrillation; F03.90 Unspecified dementia, unspecified severity, without behavioral disturbance, psychotic disturbance, mood disturbance, and anxiety; N18.3 Chronic kidney disease, stage 3 (moderate); R13.0 Aphagia; K21.9 Gastro-esophageal reflux disease without esophagitis; F32.9 Major depressive disorder, single episode, unspecified; F41.9 Anxiety disorder, unspecified; I35.0 Nonrheumatic aortic (valve) stenosis; M19.90 Unspecified osteoarthritis, unspecified site; N40.0 Benign prostatic hyperplasia without lower urinary tract symptoms; I12.9 Hypertensive chronic kidney disease with stage 1 through stage 4 chronic kidney disease, or unspecified chronic kidney disease; M10.9 Gout, unspecified; Z51.5 Encounter for palliative care; Z85.46 Personal history of malignant neoplasm of prostate; Z86.73 Personal history of transient ischemic attack (TIA), and cerebral infarction without residual deficits; Z79.01 Long term (current) use of anticoagulants; Z79.899 Other long term (current) drug therapy; Z87.891 Personal history of nicotine dependence
CPT/HCPCS: 31500; 36600; 70450; 70544; 70551; 71045; 76775; 80048; 80053; 80061; 80162; 81001; 82550; 82805; 83605; 83735; 84100; 84484; 85007; 85025; 85027; 85610; 85730; 87040; 87070; 87086; 87205; 87641; 93005; 93306; 93880; 94002; 94003; 95819; 96374; J1160; J1644; J1650; J1940; J2060; J2543; J7030